=== PATIENT | female | born 1970 | race African-American/Black ===

== ENCOUNTER 2017-02-12 10:21 | Emergency (ER) | payer OTHER ==
[2017-02-12] MEDS ORDERED: Ketorolac Tromethamine 60 MG/2 ML VIAL ONE (12:25)
== END 2017-02-12 12:45 | disposition home or self-care (01) ==
LOC: ERS 10:21
DX: M79.605 Pain in left leg (principal); M06.9 Rheumatoid arthritis, unspecified; J45.909 Unspecified asthma, uncomplicated; I10 Essential (primary) hypertension; Z79.51 Long term (current) use of inhaled steroids; Z79.52 Long term (current) use of systemic steroids
CPT/HCPCS: 96372; J1885

== ENCOUNTER 2017-02-20 08:36 | Emergency (ER) | payer OTHER ==
[2017-02-20] MEDS ORDERED: Dexamethasone 10 MG/ML VIAL ONE (09:05)
== END 2017-02-20 09:26 | disposition home or self-care (01) ==
LOC: ERS 08:36
DX: M54.16 Radiculopathy, lumbar region (principal); M06.9 Rheumatoid arthritis, unspecified; J45.909 Unspecified asthma, uncomplicated; I10 Essential (primary) hypertension; Z79.52 Long term (current) use of systemic steroids; Z79.899 Other long term (current) drug therapy
CPT/HCPCS: 96372; J1100

== ENCOUNTER 2017-04-06 08:09 | Observation (INO) | payer OTHER ==
--- NOTE | 2017-04-06 10:57 | ULT ---
DOPPLER VENOUS ULTRASOUND LEFT LOWER EXTREMITY: INDICATION: Left lower extremity pain. TECHNIQUE: Luu scale, color Doppler, and vascular duplex with spectral analysis was performed of the deep venou s structures of left lower extremity. The common femoral vein, superficial femoral vein, popliteal ve in, posterior tibial vein, proximal greater saphenous, and proximal profunda veins were assessed bila terally. FINDINGS: There is incomplete compression and diminished flow seen within the left popliteal vein suspicious fo r partially occlusive thrombus. No additional deep venous thrombosis is evident. IMPRESSION: Partially occlusive thrombus seen at the level of the popliteal vein. POS: [facility]
[2017-04-06 11:10] LABS: Hematocrit 41.8 % (36.0-47.0); Mean Platelet Volume 7.1 fL (7.4-10.4); Red Blood Cell (RBC) Count 3.96 mill/uL (4.20-5.40); White Blood Cell (WBC) Count 11.9 thou/uL (4.8-10.8)
[2017-04-06] MEDS ORDERED: Enoxaparin Sodium 30 MG/0.3 ML SYRINGE ONE (11:11)
[2017-04-06] MEDS ORDERED: Enoxaparin Sodium 100 MG/ML SYRINGE ONE (11:11)
[2017-04-06 11:31] LABS: ALT (SGPT) 29 U/L (8-55); AST (SGOT) 12 U/L (5-34); Alkaline Phosphatase 80 U/L (40-150); Anion Gap 11 mmol/L (10-20); BUN (Urea Nitrogen) 14 mg/dL (7.0-18.7); Bilirubin, Total 0.2 mg/dL (0.2-1.2); Calc. Creatinine Clearance 0 mL/min (70-130); Carbon Dioxide 23 mmol/L (22-29); Chloride 109 mmol/L (98-107); Estimated GFR-MDRD Greater than 90; Globulin 4.2 g/dL (2.4-3.5); Protein, Total 7.8 g/dL (6.0-8.3)
[2017-04-06] MEDS ORDERED: Morphine 4 MG/ML VIAL ONE (11:39)
[2017-04-06 11:43] LABS: #Basophils 0.1 thou/uL (0.0-0.2); #Lymphocytes 0.7 thou/uL (1.20-3.40); #Monocytes 0.4 thou/uL (0.11-0.59); #Neutrophils 10.7 thou/uL (1.40-6.50); %Basophils 0.6 % (0.0-1.0); %Eosinophils 0.1 % (0.0-10.0); %Lymphocytes 5.7 % (21.0-51.0); %Monocytes 3.6 % (0.0-10.0); Macrocytosis SLIGHT = 6-15 cells (100X) (0-5/hpf)
[2017-04-06] MEDS ORDERED: ISOVUE-370 76%-LOCM 1 ML ONE (13:56)
[2017-04-06 14:08] LABS: Bilirubin Negative (Negative); Blood, Urine Negative (Negative); Glucose, Urine (Dipstick) 100 mg/dL (Negative); Ketone, Urine Negative (Negative); Nitrite Negative (Negative); Protein, Urine (Dipstick) Negative (Neg-Trace); Urobilinogen 0.2 mg/dL (0.2-1.0)
[2017-04-06] MEDS ORDERED: Acetaminophen 325 MG TAB PO PRN (14:28)
--- NOTE | 2017-04-06 14:44 | CT ---
CT PULMONARY ANGIOGRAM WITH IV CONTRAST AND 3D POSTPROCESSING: Date: 04/06/17 HISTORY: 47-year-old female with left leg pain. FINDINGS: There is good contrast opacification of the pulmonary arterial vasculature without filling defects to suggest pulmonary embolism. The thoracic aorta demonstrates no evidence of aneurysm or dissection. N o pleural or pericardial effusions are seen. No pneumothoraces, focal areas of consolidation, or lung masses are identified. No acute osseous abnormalities are noted. IMPRESSION: No CT evidence of pulmonary embolism. POS: [facility]
[2017-04-06 14:49] LABS: Hemoglobin A1c 5.7 % (4.0-6.0)
[2017-04-06 14:56] VITALS: BMI 46.7
[2017-04-06] MEDS: Morphine PF 1 MG/ML SYR IVP PRN ×4 (15:15→23:12)
--- NOTE | 2017-04-06 15:31 | HP-2 ---
CODE STATUS: FULL. PRIMARY CARE PHYSICIAN: Jhon Elizabeth M.D. ATTENDING PHYSICIAN: Huseyin Rizvi M.D. RESIDENT: Stephanie Myers D.O. CHIEF COMPLAINT: Left leg pain. HISTORY OF PRESENT ILLNESS: This is a 47-year-old -[place]e female with past medical history of asthma, rheumatoid arthritis, and GERD that presents with a 3-month history of left lower thigh pain. She has been seen in the hospital and as an outpatient on several occasions and was previously diagnosed with muscle spasms. Nothing has improved the pain. The pain has gotten so bad that the patient is unable to get up or tolerate weightbearing, which is what prompted her to come to ED. The patient has no family or personal history of DVTs or PEs. Her cancer screening is up-to-date; however, she does have a family history of breast cancer on her mother's side. The patient denies any recent surgery or history of trauma to that extremity. The patient denies palpitations, chest pain, or dyspnea. Patient was given therapeutic Lovenox in the ER along with morphine 4 mg. PAST MEDICAL HISTORY: 1. Rheumatoid arthritis. 2. Asthma. 3. Gastroesophageal reflux disease. 4. Morbid obesity. 5. Anxiety. PAST SURGICAL HISTORY: 1. Hysterectomy. 2. Bilateral tubal ligation. ALLERGIES: CODEINE. MEDICATIONS: 1. Albuterol inhaler 2 puffs as needed. 2. Symbicort 160/4.5. 3. Prednisone 20 mg daily. 4. Nexium 40 mg daily. FAMILY HISTORY: The patient's mother had breast cancer. SOCIAL HISTORY: The patient admits to smoking a cigarette occasionally; she estimates once every other week. The patient states that her alcohol use is rare, and she denies any drug use. REVIEW OF SYSTEMS: A 12 point review of systems was performed and all were negative except as listed in the HPI and indicated below. The patient does endorse left anterior thigh pain associated with spasms. She denies any fever or chills or swelling to the left anterior thigh. Patient denies any weakness, numbness, or tingling in the left lower extremity. The patient denies any polydipsia or polyuria. PHYSICAL EXAMINATION: VITAL SIGNS: Blood pressure 143/93, pulse 104, respiratory rate 20, T-max 98.2 , pulse ox 97% on room air, current weight 118 kilograms. GENERAL: The patient is alert and oriented x3, in no acute distress, well- developed, well-nourished, obese, appropriately interactive. HEENT: Pupils equally round and reactive to light and accommodation. Extraocular muscles intact. ENT: Nasal mucosa within normal limits. NECK: Supple. CARDIOVASCULAR: Regular rate and rhythm, no murmurs. RESPIRATORY: Normal respiratory effort, no retractions. LUNGS: Clear to auscultation bilaterally. SKIN: Skin is warm and dry. No cyanosis or lesions. ABDOMEN: Soft, nontender to palpation. Bowel sounds positive in all 4 quadrants. No masses or distention. EXTREMITIES: No clubbing or cyanosis. There is 2+ edema to midcalf in left lower extremity. MUSCULOSKELETAL: Structure within normal limits. NEUROLOGIC: No focal deficits. Sensation within normal limits. Cranial nerves II-XII intact. GCS of 15. PSYCHIATRIC: Appropriate. LABORATORY DATA: 1. CBC reveals a white count of 11.9, hemoglobin 13.7, hematocrit 41.8, and platelets of 241. 2. CMP reveals sodium 139, potassium 3.9, chloride 109, bicarbonate 23, BUN 14 , creatinine 0.80, glucose 193, calcium 9.0, total bilirubin 0.2, total protein 7.0, albumin 3.6, AST 12, ALT 29, and alkaline phosphatase 80. 3. PT 13, INR 1, PTT 28. 4. Left lower extremity Doppler ultrasound shows partially occlusive thrombus in the popliteal vein. ASSESSMENT AND PLAN: This is a 47-year-old -[place]inamese female who presents with a 3-month history of left lower extremity pain. 1. Deep vein thrombosis, which is evident on left lower extremity Doppler ultrasound showing partially occlusive thrombus in popliteal vein. Patient was started on therapeutic Lovenox in the ED. We will transition to oral anticoagulant, Eliquis. We will also check CK to rule out any rhabdomyolysis. Since the patient does have a family history of breast cancer, we will delinquency counselor on potential for BRCA testing as an outpatient. 2. Tachycardia with history of recent deep vein thrombosis. EKG was ordered along with CTA of the chest to rule out pulmonary embolism. The patient did have a Wells score of 4.5. 3. Leukocytosis. This could be a leukemoid reaction versus infectious etiology. Left femur and left knee x-ray were ordered to rule out an infectious cause or osteonecrosis. If x-ray negative, may consider doing an MRI. May also consider CRP and ESR to evaluate for inflammation. 4. Hyperglycemia. Hemoglobin A1c was ordered, pending results. Blood glucose 193 on presentation to ED. 5. Macrocytosis, uncertain etiology. Patient does have rheumatoid arthritis and may be on immunosuppressant drugs. B12 and RBC folate pending. DISPOSITION AND LENGTH OF HOSPITAL STAY: One day. Symptomatic medications will be provided. History and physical exam as well as management discussed with Dr. Arias. MK
--- NOTE | 2017-04-06 15:41 | HP ---
DATE OF ADMISSION: 04/06/2017 CHIEF COMPLAINT: Leg pain. HISTORY OF PRESENT ILLNESS: This is a 47-year-old female with past history of rheumatoid arthritis, diabetes, asthma, who presents with a 3-month history of worsening severe left leg pain. It is aching, worse with movement, better with rest and has been worsening over the last 3 months, nothing particular happened last night or today to make her come. She was just tired of being in pain. Denies any numbness or tingling, any fevers, night sweats, any chest pain, shortness of breath, any weakness or abdominal pain. No recent weight loss and all other systems were reviewed and are negative. PAST MEDICAL HISTORY: Positive for rheumatoid arthritis, asthma, diabetes. PAST SURGICAL HISTORY: Positive for history of tubal ligation, hysterectomy. SOCIAL HISTORY: Drinks socially. No drug use, nonsmoker. ALLERGIES: CODEINE. MEDICATIONS: Include prednisone 20 mg daily, Symbicort, albuterol, naproxen, Robaxin, and a Medrol Dosepak on file, unsure if she is taking. She also says she is taking an unknown other antirheumatic agent prescribed for in [place]. PHYSICAL EXAMINATION: VITAL SIGNS: Include temperature of 98.2, pulse 115, BP 135/86, respirations 20 , O2 sat 96% on room air. GENERAL: Well-appearing, no distress. Alert and oriented x3. HEENT: Pupils equal, round, and reactive to light. No icterus or injection. Nares patent. Pinna normal. Moist mucous membranes. No obvious thyromegaly. CARDIOVASCULAR: Regular rhythm without murmurs, gallops or rubs. She has trace pitting edema to bilateral lower extremities, perhaps slightly worse on the left. She was tachycardic on heart exam. LUNGS: Clear to auscultation bilaterally with increased work of breathing, wheezes, rales or rhonchi. ABDOMEN: Bowel sounds positive. Nontender to palpation. GENITOURINARY: Deferred. MUSCULOSKELETAL: She has quite a bit of tenderness to palpation over the anterior medial thigh. She actually refused to let me complete the portion of the exam, although she had no overlying erythema, palpable fluctuance or other skin changes. Distal pulses on both extremities are 1+ on the DP and PT. NEUROLOGIC: Cranial nerves II-XII intact and symmetric. Motor is 5/5 in upper extremities. She is 5/5 in the right lower extremity and slightly diminished in the left simply because she refuses to move the leg because of the pain. PSYCHIATRIC: Alert and oriented x3. PSYCHIATRIC: Mood and affect appropriate for current medical condition. LABORATORY DATA: Include white count 11.9 with 90% neutrophils. Hemoglobin 13.7, MCV 106, platelets 241. Coag: INR 1, PTT 28. Chemistry: Sodium 139, potassium 3.9, chloride 109, bicarb 23, gap of 11, BUN 14, creatinine 0.8, glucose 193. Normal LFTs. UA with only 100 glucose in her urine. Her reports included vascular ultrasound positive for a partially occlusive thrombus at the left popliteal vein. ASSESSMENT AND PLAN: This is a 47-year-old female with: 1. Left lower extremity deep venous thrombosis. We will go ahead and prescribe therapeutic Lovenox and plan transitioning her to oral anticoagulant. CTA as she is tachycardic to r/o PE. 2. Uncontrolled leg pain that has failed outpatient therapy. The differential is wide and deep vein thrombosis could be contributing. She could also have diabetic myonecrosis, neuropathy or vasculitis in light of her rheumatic disease and inguinal hernia or femoral hernia, though that is not evident on exam which was limited by her refusal for a thorough exam. Necrotizing fasciitis, pyomyositis although evidence for acute infection I feel is relatively lacking as she has mild white count and is afebrile, but we will closely monitor her exam. 3. Rheumatoid arthritis. She is currently on prednisone. I suspect methotrexate as well, evidenced by her macrocytosis. We will request records from [place] as well as continue her prednisone while she is in-house and a folate and B12 for her macrocytosis. 4. Diabetes. Sliding scale initially while she is in-house. We will go ahead and send A1c. Deep venous thrombosis prophylaxis. She is on therapeutic Lovenox. Gastrointestinal prophylaxis, on diet. Pain control with IV opiates. MTDD
--- NOTE | 2017-04-06 17:19 | RAD ---
LEFT FEMUR 2 VIEWS: Date: 04/06/17 HISTORY: Left lower extremity pain. FINDINGS/IMPRESSION: The left femur is intact. There are degenerative changes in the left knee. Contrast is present in a d istended urinary bladder. POS: [facility]
--- NOTE | 2017-04-06 18:33 | RAD ---
FOUR VIEWS OF LEFT KNEE: Date: 04-06-17 Comparison: None. History: Left lower extremity pain/knee pain. FINDINGS: There is severe medial compartment degenerative change with joint space narrowing, subchondral sclero sis and medial osteophyte formation. There is moderate lateral compartment narrowing, subchondral scl erosis and osteophyte formation. There is a nonspecific small knee joint effusion. There is moderate patellofemoral joint space narrowing with associated osteophyte formation. No acute fracture or dislo cation. IMPRESSION: Prominent multi compartment degenerative change. Small knee joint effusion with no displaced fracture or dislocation noted. POS: [facility]
[2017-04-06] MEDS ORDERED: Zolpidem Tartrate 5 MG TAB PO PRN (21:11)
[2017-04-06] MEDS ORDERED: Apixaban 5 MG TAB PO SCH (23:00)
[2017-04-07] MEDS: Morphine PF 1 MG/ML SYR IVP PRN ×5 (04:17→14:04)
[2017-04-07] MEDS ORDERED: Dextrose 5% in Water 1,000 ML IV PRN (05:58)
[2017-04-07] MEDS ORDERED: HumaLOG 300 UNITS/3 ML VIAL SC PRN (05:58)
[2017-04-07] MEDS ORDERED: Dextrose 50% Abboject 50 ML SYRINGE SLOW IVP PRN (05:58)
[2017-04-07] MEDS ORDERED: ALBUTEROL SULFATE NEB PRN (06:00)
--- NOTE | 2017-04-07 06:03 | PDOC.FM ---
Addendum entered and electronically signed by Jignesh Houston DO 04/07/17 10: 54: Upper Level Note: Patient doing well overall. Still having some leg pain. Denies chest pain and dyspnea Vitals: HR 103 Temp 98.4 BP 121/75 O2 97% on RA RR 16 Exam: Obese, alert, oriented x3. NAD. Lungs CTAB. Heart RRR. No m/r/g auscultated. Abdomen soft, nontender. Anterior left thigh tender to palpation. Some pain with flexion of hip. Pulses full and equal in all 4 extremities. No focal neurologic deficits A/P: 1) DVT of left popliteal vein - Continue anticoagulation. No evidence of PE 2) Left thigh pain - Likely related to #1 but other etiologies being considered including osteonecrosis of hip. ESR elevated but patient known to have RA. CRP was normal. MRI of left leg and hip pending I personally examined the patient and agree with Dr. Myers's examination, assessment, and plan as listed below. Please refer to her note for full details and plan. Jignesh Houston DO PGY-3 Original Note: - Subjective Subjective: Patient doing well this AM. She does endorse pain in her legs bilaterally, with more intensity in right anterior thigh. She denies any chest pain or shortness of breath. She is having difficulty ambulating secondary to pain. Patient does complain of dysuria and suprapubic pain. - Objective MAR Reviewed: Yes Vital Signs & Weight: Vital Signs (12 hours) Temp Pulse Resp BP Pulse Ox 04/06/17 23:12 98.4 F 103 H 16 121/75 97 04/06/17 21:10 98.3 F 97 16 135/63 97 04/06/17 19:40 98.3 F 97 16 133/82 96 Weight Weight 131.287 kg I&O: 04/05/17 04/06/17 04/07/17 06:59 06:59 06:59 Intake Total 308 Output Total 0 Balance 308 Result Diagrams: 04/07/17 06:42 04/06/17 10:54 EKG Reviewed by me: Yes Radiology Reviewed by me: Yes <Stephanie Myers - Last Filed: 04/07/17 08:16> - Objective Vital Signs & Weight: Vital Signs (12 hours) Temp Pulse Resp BP Pulse Ox 04/07/17 07:58 97.7 F 99 20 141/85 H 93 L 04/07/17 06:58 105 H 20 04/07/17 06:55 105 H 20 04/07/17 04:17 90 18 139/76 98 04/06/17 23:12 98.4 F 103 H 16 121/75 97 Weight Weight 289 lb 7 oz I&O: 04/06/17 04/07/17 04/08/17 06:59 06:59 06:59 Intake Total 1272 Output Total 600 Balance 672 Result Diagrams: 04/07/17 06:42 04/06/17 10:54 <Huseyin Rizvi - Last Filed: 04/07/17 11:00> Phys Exam - Physical Examination Constitutional: NAD HEENT: moist MMs, sclera anicteric Neck: supple Respiratory: no wheezing, no rales, no rhonchi, clear to auscultation bilateral Cardiovascular: RRR, no significant murmur Gastrointestinal: soft, non-tender, no distention, positive bowel sounds Obese Musculoskeletal: pulses present 2+ edema of LLE, Tender to palpation of left anterior thigh Jumps with touch to lower extremities bilaterally. Neurological: non-focal, moves all 4 limbs Psychiatric: A&O x 3 Skin: cap refill <2 seconds <Stephanie Myers - Last Filed: 04/07/17 08:16> Dx/Plan (1) DVT (deep venous thrombosis) Code(s): I82.409 - ACUTE EMBOLISM AND THOMBOS UNSP DEEP VN UNSP LOWER EXTREMITY Status: Acute QualifierTitle: DVT location: lower extremity Affected thrombotic vein of extremity: popliteal Chronicity: unspecified Laterality: left Qualified Code(s): I82.432 - Acute embolism and thrombosis of left popliteal vein (2) Hyperglycemia Code(s): R73.9 - HYPERGLYCEMIA, UNSPECIFIED Status: Acute (3) Leukocytosis Code(s): D72.829 - ELEVATED WHITE BLOOD CELL COUNT, UNSPECIFIED Status: Acute (4) Rheumatoid arthritis Code(s): M06.9 - RHEUMATOID ARTHRITIS, UNSPECIFIED Status: Chronic QualifierTitle: Rheumatoid arthritis location: multiple sites Rheumatoid factor presence: unspecified presence Qualified Code(s): M06.9 - Rheumatoid arthritis, unspecified (5) GERD (gastroesophageal reflux disease) Code(s): K21.9 - GASTRO-ESOPHAGEAL REFLUX DISEASE WITHOUT ESOPHAGITIS Status: Acute QualifierTitle: Esophagitis presence: esophagitis presence not specified Qualified Code(s): K21.9 - Gastro-esophageal reflux disease without esophagitis (6) Asthma Code(s): J45.909 - UNSPECIFIED ASTHMA, UNCOMPLICATED Status: Acute QualifierTitle: Asthma severity: mild Asthma persistence: intermittent Asthma complication type: uncomplicated Qualified Code(s): J45.20 - Mild intermittent asthma, uncomplicated (7) UTI (urinary tract infection) Status: Acute QualifierTitle: Urinary tract infection type: site unspecified Hematuria presence: without hematuria Qualified Code(s): N39.0 - Urinary tract infection , site not specified - Plan Plan: Plan: DVT of left popliteal vein: - Evident on doppler U/S of LLE - Initially treated with therapeutic lovenox and transitioned to oral anticoagulant, eliquis - PE ruled out via CTA - EKG unremarkable - Patient still in pain despite morphine, consider adding gabapentin to medication regimen Tachycardia, intermittent: - Ruled out PE via CTA - EKG unremarkable UTI, uncomplicated - E. coli positive on culture - Treat withkeflex Leukocytosis with 90% neutrophils: - Concern for infection or other etiology for leg pain - Xray of femur and knee unremarkable. Xray of knee showed only some osteoarthritic changes to include joint space narrowing. - MRI of LLE pending - May be leukomoid reaction, although this is less likely with neutrophilia of 90% - CK nml - ESR and CRP pending Hyperglycemia: - Mild SSI while in hospital - HgA1c 5.7 - Patient needs further management as outpatient Rheumatoid arthritis: - Continue prednisone - Try to obtain records to verify other medications patient should be taking Asthma: -Continue home medications <Stephanie Myers - Last Filed: 04/07/17 08:16> Attending Addendum - Attending Addendum I personally evaluated the patient and discussed the management with Dr. Myers and Celso I agree with the History, Examination, Assessment and Plan documented above. <Huseyin Rizvi - Last Filed: 04/07/17 11:00>
[2017-04-07] MEDS ORDERED: Mometasone/Formoterol 120 PUFF INHALER INH SCH (06:30)
[2017-04-07 06:51] LABS: #Basophils 0.1 thou/uL (0.0-0.2); #Lymphocytes 3.1 thou/uL (1.20-3.40); #Monocytes 0.6 thou/uL (0.11-0.59); #Neutrophils 5.4 thou/uL (1.40-6.50); %Basophils 0.7 % (0.0-1.0); %Eosinophils 0.3 % (0.0-10.0); %Lymphocytes 33.4 % (21.0-51.0); Hematocrit 38.8 % (36.0-47.0); Mean Platelet Volume 7.1 fL (7.4-10.4); Red Blood Cell (RBC) Count 3.66 mill/uL (4.20-5.40); White Blood Cell (WBC) Count 9.2 thou/uL (4.8-10.8)
[2017-04-07] MEDS ORDERED: predniSONE 20 MG TAB PO SCH (08:00)
[2017-04-07] MEDS ORDERED: Simethicone Chewable 80 MG TAB PO PRN (08:18)
[2017-04-07] MEDS ORDERED: cefTRIAXone\\ROCEPHIN 2 GM in Sodium Chloride 0.9% 100 ML IVPB SCH (08:30)
[2017-04-07] MEDS ORDERED: Apixaban 5 MG TAB PO SCH (09:00)
[2017-04-07] MEDS ORDERED: Gabapentin 100 MG CAP PO SCH (09:00)
[2017-04-07] MEDS ORDERED: Cephalexin 250 MG CAP PO SCH (09:00)
[2017-04-07] MEDS ORDERED: Non-Formulary Item 1 EACH (Budesonide-Formoterol [Symbicort 160-4.5] 1 PUFF) INH SCH (09:00)
[2017-04-07] MEDS ORDERED: Cephalexin 125 MG/5 ML Oral Suspension PO SCH (09:00)
--- NOTE | 2017-04-07 13:17 | EKG ---
Test Reason : ROUTINE Blood Pressure : / mmHG Vent. Rate : 096 BPM Atrial Rate : 096 BPM P-R Int : 120 ms QRS Dur : 070 ms QT Int : 352 ms P-R-T Axes : 044 014 013 degrees QTc Int : 444 ms Poor data quality, interpretation may be adversely affected lead V3 Normal sinus rhythm Normal ECG When compared with ECG of 07-JUL-2016 04:25, T wave amplitude has decreased in Lateral leads Confirmed by MARTHA GUIDO ([id number]) on 04/07/2017 1:17:02 PM Referred By: DOROTHY Confirmed By:MARTHA GUIDO
[2017-04-07 15:20] VITALS: BP 138/90; TEMP 98.2
[2017-04-07] MEDS ORDERED: traMADol HCl 50 MG TAB PO PRN (16:08)
--- NOTE | 2017-04-08 14:39 | DIS-2 ---
DATE OF ADMISSION: 04/06/2017 DATE OF DISCHARGE: 04/07/2017 RESIDENT: Stephanie Myers DO ADMITTING PHYSICIAN: Lico Arias MD DISCHARGE ATTENDING: Huseyin Rizvi M.D. CONSULTATIONS: None. PROCEDURES: 1. Vascular ultrasound showed partially occlusive thrombus at the level of the popliteal vein. 2. CTA of chest/thorax, no evidence of pulmonary embolism. 3. EKG: Normal sinus rhythm. 4. Left femur x-ray shows left femur intact. There are degenerative changes in the left knee. 5. Left knee x-ray; prominent multi-compartment degenerative changes, small knee effusion with no displaced fracture or dislocation noted. PRIMARY DIAGNOSES: 1. Deep vein thrombosis of left popliteal vein. 2. Urinary tract infection, uncomplicated. SECONDARY DIAGNOSES: 1. Tachycardia, intermittent. 2. Leukocytosis with 90% neutrophils. 3. Hyperglycemia. 4. Rheumatoid arthritis. 5. Asthma. DISCHARGE MEDICATIONS: 1. Eliquis 5 mg oral twice daily for 6 days and then take one tablet twice a day remaining days. 2. Keflex 500 mg oral every 12 hours. 3. Gabapentin 300 mg oral daily. 4. Albuterol sulfate 2 puffs nebulizer every 4 hours as needed. 5. Symbicort 160/4.5 one puff inhalation twice daily. 6. Prednisone 20 mg oral every morning with breakfast. DISCONTINUED MEDICATIONS: Naproxen 500 mg oral twice daily. HISTORY OF PRESENT ILLNESS AND HOSPITAL COURSE: This is a 47-year-old female with past medical history of rheumatoid arthritis, diabetes, asthma, who presented with 3-month history of worsening severe left leg pain and aching worse with movement, better with rest, and has been worsening over the last 3 months. Nothing particular happened prior to admission or during the admission which prompted her to come to ED. She was just tired of being in pain. The patient denies any numbness or tingling, fevers, night sweats, chest pain, shortness of breath, weakness, or abdominal pain. No recent weight loss. All other systems reviewed and were negative. Of note, the patient's cancer screening is up-to-date. She does have a family history of breast cancer on her mother's side. The patient denies any family or personal history of DVTs or PE. Risk factors for DVT and PE include poor mobilization. The patient remained stable throughout the course of the hospital stay. She was given therapeutic Lovenox in the Emergency Department and then transitioned to Eliquis for the treatment of her DVT. She was instructed to take Eliquis 5 mg b.i.d. for 6 days and then instructed to transition to 10 mg b.i.d. for approximately 6 months. Due to the nature of the patient's pain being out of proportion to the physical exam findings, x-rays were performed to rule out other causes of pain. Aside from arthritic changes, there were no other abnormalities noted on x-ray. An MRI was ordered; however, patient refused MRI. CK was normal, which ruled out rhabdomyolysis as a cause of her pain. The patient continued to be treated for her DVT. She was instructed to follow very closely with her primary care physician to ensure that treatment is effective. Only a month supply of Eliquis was provided to the patient. She will need to follow up with her primary care physician to continue having this prescribed. Of note, the patient's laboratory findings were all within normal limits. She was tachycardic on admission, thus a CTA of the chest was performed to rule out pulmonary embolism. There was no evidence of pulmonary embolism on CTA of the chest. The patient also denied shortness of breath. DISPOSITION: Stable. DISCHARGE INSTRUCTIONS: 1. Location: Home. 2. Activity: As tolerated. 3. Diet: Consistent carbohydrates. 4. Followup: The patient was instructed to follow up in 7 [facility] at [facility] for further management of her DVT. The necessity for close followup was discussed in detail. The patient was in understanding of this plan and was agreeable. MK
[2017-04-08 16:15] LABS: Folate,Hemolysate 312.7 ng/mL (Not Estab.); RBC Folate Test Component 869 ng/mL (>498)
== END 2017-04-07 18:27 | disposition home or self-care (01) ==
LOC: ERS 08:09 → INTOOBSV 10:57 → ERHOLD 10:57 → 2SW 14:36
PROVIDERS: ADMIT Internal Medicine; ATTEND Internal Medicine
DX: I82.432 Acute embolism and thrombosis of left popliteal vein (principal); N39.0 Urinary tract infection, site not specified; R00.0 Tachycardia, unspecified; D72.829 Elevated white blood cell count, unspecified; E11.65 Type 2 diabetes mellitus with hyperglycemia; M06.9 Rheumatoid arthritis, unspecified; J45.909 Unspecified asthma, uncomplicated; K21.9 Gastro-esophageal reflux disease without esophagitis; E66.01 Morbid (severe) obesity due to excess calories; F41.9 Anxiety disorder, unspecified; Z68.42 Body mass index [BMI] 45.0-49.9, adult; Z79.2 Long term (current) use of antibiotics; Z79.01 Long term (current) use of anticoagulants; Z79.52 Long term (current) use of systemic steroids; Z79.899 Other long term (current) drug therapy; Z88.5 Allergy status to narcotic agent; Z98.51 Tubal ligation status; Z90.710 Acquired absence of both cervix and uterus
CPT/HCPCS: 36415; 71275; 80053; 81003; 82550; 82607; 82747; 83036; 85025; 85610; 85652; 85730; 86140; 87077; 87086; 87186; 93005; 93010; 94640; 94664; 96361; 96372; 96374; 96376; A4216; G0378; J1650; J2270; J2274; J7506; J7620

== ENCOUNTER 2017-04-17 09:38 | Emergency (ER) | payer OTHER ==
[2017-04-17 10:56] LABS: #Lymphocytes 0.9 thou/uL (1.20-3.40); #Monocytes 0.2 thou/uL (0.11-0.59); #Neutrophils 8.2 thou/uL (1.40-6.50); %Basophils 0.2 % (0.0-1.0); %Eosinophils 0.3 % (0.0-10.0); %Lymphocytes 9.1 % (21.0-51.0); %Monocytes 2.3 % (0.0-10.0); Hematocrit 45.2 % (36.0-47.0); Mean Platelet Volume 7.1 fL (7.4-10.4); Red Blood Cell (RBC) Count 4.26 mill/uL (4.20-5.40); White Blood Cell (WBC) Count 9.3 thou/uL (4.8-10.8)
[2017-04-17 11:07] LABS: PTT 32.5 SEC (22.9-36.1); Prothrombin Time 13.4 SEC (12.0-14.7)
[2017-04-17 11:12] LABS: ALT (SGPT) 30 U/L (8-55); AST (SGOT) 19 U/L (5-34); Alkaline Phosphatase 88 U/L (40-150); Anion Gap 12 mmol/L (10-20); BUN (Urea Nitrogen) 14 mg/dL (7.0-18.7); Bilirubin, Total 0.3 mg/dL (0.2-1.2); Calc. Creatinine Clearance 0 mL/min (70-130); Calcium 9.6 mg/dL (7.8-10.44); Carbon Dioxide 27 mmol/L (22-29); Chloride 103 mmol/L (98-107); Estimated GFR-MDRD Greater than 90; Globulin 4.5 g/dL (2.4-3.5); Protein, Total 8.4 g/dL (6.0-8.3)
[2017-04-17] MEDS ORDERED: Ketorolac Tromethamine 30 MG/ML VIAL ONE (11:13)
--- NOTE | 2017-04-17 11:31 | ULT ---
DOPPLER VENOUS ULTRASOUND LEFT LOWER EXTREMITY: Date: 04/17/17 INDICATION: History of left leg pain with recent diagnosis of deep venous thrombosis. COMPARISON: Prior exam dated 04/06/17. TECHNIQUE: Luu scale, color Doppler, and vascular duplex with spectral analysis was performed of the deep venou s structures of the left lower extremity. The common femoral vein, superficial femoral vein, proximal greater saphenous vein, proximal greater profunda vein, popliteal, and posterior tibial veins were a ssessed. FINDINGS: The previously seen partially occlusive thrombus within the left popliteal vein is no longer identifi ed. There is normal compression, flow, and augmentation seen within the deep venous structures of the left lower extremity. IMPRESSION: 1. The previously seen left popliteal vein partially occlusive thrombus is no longer identified. 2. There is no evidence of residual deep venous thrombosis within the left lower extremity. POS: [facility]
== END 2017-04-17 12:27 | disposition home or self-care (01) ==
LOC: ERS 09:38
DX: M79.605 Pain in left leg (principal); M06.9 Rheumatoid arthritis, unspecified; J45.909 Unspecified asthma, uncomplicated; F41.9 Anxiety disorder, unspecified; Z79.52 Long term (current) use of systemic steroids; Z79.899 Other long term (current) drug therapy
CPT/HCPCS: 80053; 85025; 85610; 85730; 96374; J1885

== ENCOUNTER 2017-04-20 05:53 | Observation (INO) | payer OTHER ==
[2017-04-20] MEDS ORDERED: Bisacodyl 10 MG SUPP PR PRN (08:29)
[2017-04-20] MEDS ORDERED: HYDROcodone/Acetaminophen 10/325 mg Tablet PO PRN (08:29)
[2017-04-20] MEDS ORDERED: HYDROcodone/Acetaminophen 5/325 mg Tablet PO PRN (08:29)
[2017-04-20] MEDS ORDERED: Ondansetron HCl/PF 4 MG/2 ML Vial IVP PRN (08:29)
[2017-04-20] MEDS ORDERED: Bisacodyl 5 MG TAB PO PRN (08:29)
[2017-04-20] MEDS ORDERED: Ondansetron ODT 4 MG TAB PO PRN (08:29)
[2017-04-20] MEDS ORDERED: ALBUTEROL SULFATE NEB PRN (08:38)
[2017-04-20] MEDS ORDERED: Ibuprofen 800 MG TAB PO SCH (08:45)
[2017-04-20] MEDS ORDERED: Gabapentin 100 MG CAP PO SCH (09:00)
[2017-04-20] MEDS ORDERED: Apixaban 5 MG TAB PO SCH (09:00)
[2017-04-20] MEDS ORDERED: Non-Formulary Item 1 EACH (Budesonide-Formoterol [Symbicort 160-4.5] 1 PUFF) INH SCH (09:00)
[2017-04-20] MEDS ORDERED: PROVENTIL INHALER 6.7 G (200 INHALATIONS) INH PRN (09:32)
[2017-04-20] MEDS ORDERED: Ketorolac Tromethamine 30 MG/ML VIAL IVP SCH (09:45)
[2017-04-20 10:09] LABS: #Basophils 0.1 thou/uL (0.0-0.2); #Lymphocytes 1.9 thou/uL (1.20-3.40); #Monocytes 0.5 thou/uL (0.11-0.59); #Neutrophils 4.2 thou/uL (1.40-6.50); %Basophils 1.3 % (0.0-1.0); %Eosinophils 0.4 % (0.0-10.0); %Lymphocytes 28.2 % (21.0-51.0); Hematocrit 44.4 % (36.0-47.0); Mean Platelet Volume 6.9 fL (7.4-10.4); Red Blood Cell (RBC) Count 4.19 mill/uL (4.20-5.40); White Blood Cell (WBC) Count 6.7 thou/uL (4.8-10.8)
[2017-04-20 10:24] LABS: Bilirubin Negative (Negative); Blood, Urine Negative (Negative); Glucose, Urine (Dipstick) Negative (Negative); Ketone, Urine Negative (Negative); Nitrite Positive (Negative); Protein, Urine (Dipstick) Negative (Neg-Trace); Urobilinogen 0.2 mg/dL (0.2-1.0)
[2017-04-20 10:26] LABS: Bacteria/HPF 4+ HPF (None Seen); Hyaline Casts/LPF 0-3 HYALINE CAST LPF (0-3 Hyaline); Squamous Epithelial 0-3 HPF (0-3)
[2017-04-20 10:33] LABS: ALT (SGPT) 27 U/L (8-55); AST (SGOT) 19 U/L (5-34); Alkaline Phosphatase 77 U/L (40-150); Anion Gap 12 mmol/L (10-20); BUN (Urea Nitrogen) 12 mg/dL (7.0-18.7); Bilirubin, Total 0.3 mg/dL (0.2-1.2); Calc. Creatinine Clearance 0 mL/min (70-130); Calcium 9.8 mg/dL (7.8-10.44); Carbon Dioxide 28 mmol/L (22-29); Chloride 104 mmol/L (98-107); Estimated GFR-MDRD Greater than 90; Globulin 4.4 g/dL (2.4-3.5); Protein, Total 8.1 g/dL (6.0-8.3)
[2017-04-20] MEDS ORDERED: Morphine 2 mg/2ml in 0.9% NaCl PF SYRINGE ONE (10:39)
[2017-04-20 10:50] LABS: RBC/HPF 0-3 HPF (0-3)
--- NOTE | 2017-04-20 12:30 | PDOC.EVN ---
Attending Addendum - Attending Addendum I personally evaluated the patient and discussed the management with Dr. Solis. I agree with the History, Examination, Assessment and Plan documented above with any addition or exceptions noted below. Patient with recent history of DVT in her lower extremity here today for complaints of pain in her leg and R sided back that she reports has been ongoing and progressive over the last 4 months. She reports she is unable to get out of the bed due to pain, to the point of soiling herself. She is poor historian and cannot qualify the pain, though she reports it is constant. She is tearful on exam. She is very resistant to physical exam and tries to remove my hand during my exam. She is neurologically intact as she has normal sensation in her lower extremities bilaterally, and can move her toes normally. Pulses intact. No evidence of skin abnormality to explain her pain. She apparently had repeat US a few days ago which showed resolution of DVT. Will perform some imaging studies to ascertain the cause of her pain, including repeat U/S to make sure there is no recurrent clot. As she is neurologically intact, it is unlikely she has spinal disease as the cause of her pain, but if nothing else is positive, she may need lumbar MRI. Will maximize pain regimen, avoiding narcotics, and reassess. Labs overtly normal. She does have some degree of UTI and we will send urine culture.
--- NOTE | 2017-04-20 12:56 | HP-2 ---
CODE STATUS: FULL. PRIMARY CARE PHYSICIAN: [facility]. ATTENDING: Anjel Freeman MD RESIDENT: Fernando Solis, PGY-1. CHIEF COMPLAINT: Intractable pain, for which she could not move. HISTORY OF PRESENT ILLNESS: This is a 47-year-old female who came to the ER by kierra siddiqui because she could not get out of bed due to pain in her left thigh and back area. She said brandi n is worse with movement, but also rates it at a 10/10 when she just lying in bed, rates it as kind o f just a sharp pain, reports having numbness and tingling. Says the pain is worse in her thigh and h ip area, but also radiates to her back. Says that she could not even get up to go to the bathroom, s o ended up soiling herself. Says she is able to control her bladder, control stools, just could not get up to move. She recently was discharged just a few weeks ago with a recently diagnosed DVT and s ent home with Eliquis. Since then, she has followed up with her PCP and started having pain. There she was sent to our pain clinic at [facility] where she was supposed to get a pain shot, but could not do that. She was not able to keep still. At that time, they sent her to the ER on the where s he got ultrasound Doppler, which showed resolution of the DVT. The DVT was in the popliteal vein are a. She has continued taking Eliquis. She is on Pequea, gabapentin, cyclobenzaprine, and naproxen and has not had much pain relief with that as well. During the exam, the patient was very worked up, margoth moore, seemed to be very worked up, it is hard to get a full history from her and get accurate testing . She was able to move her leg, but had very severe pain on palpation. Denied any fevers, chills. Denied any recent trauma. Denied any dysuria or pain with urination. Denied any other symptoms othe r than the numbness and tingling. PAST MEDICAL HISTORY: DVT in the popliteal vein, morbid obesity, osteoarthritis, rheumatoid arthriti s, and asthma. PAST SURGICAL HISTORY: Include hysterectomy and bilateral tubal ligation. ALLERGIES: CODEINE. MEDICATIONS: Symbicort, Proventil HFA, prednisone 20 mg 1 time daily, cyclobenzaprine 10 mg q.8 h. p .r.n., naproxen ER 500 mg daily, Benadryl 25 mg 2 times daily p.r.n., gabapentin 100 mg 1 time daily, Pequea 5/325 p.r.n. FAMILY HISTORY: Mother had breast cancer. SOCIAL HISTORY: She smokes occasional like once every other week. Alcohol use is rare. Drugs denie s. REVIEW OF SYSTEMS: Mainly positive for musculoskeletal pain, tenderness, arthritis, arthralgias, bartolome ro weakness, numbness and tingling. PHYSICAL EXAMINATION: VITAL SIGNS: Blood pressure is 156/101, pulse is 100, respirations 18, temperature is 98.8, pulse ox is 99% on room air. Current weight is 108.86 kilograms. GENERAL: She is alert and oriented x3, well developed, well nourished, obese. She is very histrioni c, very worked up, crying, seems very distraught. HEENT: PERRLA, EOMI. Conjunctivae within normal limit. NECK: Supple, no lymphadenopathy, no thyromegaly or bruits. CARDIOVASCULAR: Regular rate and rhythm. No murmurs, no gallops. Radial pulses and pedal pulse pal pated bilaterally. RESPIRATORY: Normal breathing effort, no retractions. Lungs clear to auscultation bilaterally. SKIN: Warm and dry. No cyanosis or lesions. There is some bruising on her left anterior calf. ABDOMEN: Soft, nontender to palpation. Bowel sounds in all 4 quadrants. No mass or distention. EXTREMITIES: She has no edema, no pitting. MUSCULOSKELETAL: Structures within normal limit. Tone is within normal limits. She has decreased r maria d of motion due to pain. NEUROLOGIC: Sensation seemed to be intact when talking with her, but not able to get full exam, and she was not fully cooperative. She was able to move all extremities bilaterally. Did not seem to palmer ve any focal neuro deficit. PSYCHIATRIC: She seems very worked up, very anxious, very histrionic. LABORATORY DATA: White blood cell count 6.7, hemoglobin 14.5, hematocrit 44.4, platelet count 228, M CV is 106. Sodium is 140, potassium is 4.0, chloride 104, carbon dioxide 28, BUN is 12, creatinine i s 0.77, glucose is 87, calcium 9.8, total protein is 8.1, albumin is 3.7, total bilirubin 0.3, AST 14 , ALT 27, alkaline phosphatase 77. ESR is 34. Her UA is leukocyte esterase moderate, nitrite positi ve, white blood cells 50 to too numerous to count, bacteria 4+. No imaging has been done at this jennifer e. ASSESSMENT AND PLAN: Intractable pain over the left thigh and hip and lower back with a recent histo ry of deep vein thrombosis. She did have an ultrasound on 04/17/2017, which showed resolution of the deep vein thrombosis in the popliteal area. We will get a re-ultrasound of her legs bilaterally as maybe has a new deep vein thrombosis, but she is currently on Eliquis. We will continue Eliquis. Sarahy bunn is on a lot of pain medicines at home, so we will do scheduled Tylenol and ibuprofen, give her a 1 time dose of Toradol. We will give her Pequea 5 for moderate pain p.r.n. and give Pequea, TENS for sev ere pain. We will also get a hip x-ray, get a lumbar x-ray. She did at her last hospital visit have recent knee and thigh x-rays, which were negative. Gabapentin was kind of low for that dose. We wi ll maybe increase the gabapentin at this time. We will consult PT and OT to see if they can help. Tam bunn will get case management consulted as she is not able to take care of herself at home due to moveme nt, may need placement in a correction rehab or detention unit. Due to her kind of personali ty, she maybe had some underlying depression or anxiety with some maybe fibromyalgia. We will start her on amitriptyline to see if this helps with pain as well. 2. Recent history of deep vein thrombosis of the popliteal vein. We will continue her Eliquis. We will repeat the ultrasound bilaterally. 3. Osteoarthritis. We will adjust home pain regimen as talked about above. 4. She has a history of rheumatoid arthritis. She is on steroids daily. I do not see a mention of methotrexate, may look into why she is not on methotrexate, may help with pain as well. We will also increase to add more steroid burst give her 100 mg of methylprednisolone. Hope to see that helps he r hip pain. 5. She has elevated blood pressures. We will continue to monitor. Does not have any blood pressure medications at home, could be due to pain, so we will continue to try and get her pain under control and continue to monitor. 6. Definitely has positive urinary tract infection. Did not report being symptomatic, but she has l eukocyte esterase positive, nitrite positive, white blood cells 50, too numerous to count, bacteria 4 +, more likely started on Bactrim. She does have a history of high risk sexual behavior. Recent vag inal discharge in her chart, so may need to adjust her antibiotic. 7. Deep vein thrombosis prophylaxis. She is on Eliquis for the deep vein thrombosis currently and g astroesophageal reflux disease prophylaxis. We will kind of monitor.
[2017-04-20] MEDS ORDERED: Ketorolac Tromethamine 30 MG/ML VIAL ONE (13:29)
[2017-04-20] MEDS ORDERED: Amitriptyline HCl 25 MG TAB PO SCH ×2 (14:38→15:00)
[2017-04-20 14:42] VITALS: BMI 45.2
[2017-04-20] MEDS ORDERED: predniSONE 20 MG TAB PO SCH (15:00)
[2017-04-20 15:24] LABS: Anion Gap 12 mmol/L (10-20); BUN (Urea Nitrogen) 11 mg/dL (7.0-18.7); Calc. Creatinine Clearance 185 mL/min (70-130); Calcium 9.7 mg/dL (7.8-10.44); Carbon Dioxide 29 mmol/L (22-29); Chloride 103 mmol/L (98-107); Estimated GFR-MDRD Greater than 90
[2017-04-20] MEDS: Apixaban 5 MG TAB PO SCH ×2 (17:13→21:41)
[2017-04-20] MEDS: Ibuprofen 800 MG TAB PO SCH ×2 (17:27→21:43)
[2017-04-20] MEDS: Gabapentin 300 MG CAP PO SCH (17:27)
[2017-04-20] MEDS: Acetaminophen 325 MG TAB PO SCH ×2 (17:28→19:26)
--- NOTE | 2017-04-20 18:53 | ULT ---
BILATERAL LOWER EXTREMITY VENOUS DOPPLER ULTRASOUND: Date: 04-20-17 History: Pain, swelling, assess for DVT. Technique: Multiplanar grayscale sonographic imaging of the venous structures of bilateral lower extr emities obtained with color flow and spectral analysis. FINDINGS: Bilateral common femoral veins, greater saphenous veins, profunda femoral veins, femoral veins, popli teal veins, and posterior tibial veins are patent. There is normal blood flow, augmentation, and comp ression within the deep venous system bilaterally. No evidence for DVT on either side. IMPRESSION: No evidence for deep venous thrombosis of either lower extremity. POS: [facility]
--- NOTE | 2017-04-20 18:58 | RAD ---
AP PELVIS ONE VIEW: History: Leg pain. Hip pain. Comparison: 10-22-10 FINDINGS: Sacral ala are intact. There is osteophytosis, joint space narrowing, and subchondral sclerosis invol ving each hip. Femoral head contours are maintained. No acute fracture or dislocation. Prominent dege nerative changes of the lower lumbar spine are evident. IMPRESSION: Osteoarthritic change of the lower lumbar spine and hips are pronounced for the patient's age. POS: [facility]
--- NOTE | 2017-04-20 19:06 | RAD ---
THREE VIEWS LUMBAR SPINE: Date: 04-20-17 Comparison: 04-18-17 History: Back and leg pain with numbness and tingling. FINDINGS: Five lumbar type vertebral bodies are present with intact pedicles on frontal imaging. There is new s ignificant disc space narrowing with degenerative endplate change and subchondral sclerosis centered at the L4-5 disc interspace. There is disc space narrowing at L4-5 with prominent anterior osteophyte formation. L2-3 and L3-4 disc space narrowing with anterior osteophyte formation noted. There is a suggestion of erosive change involving the inferior endplate of L4 and superior endplate o f L5, new. IMPRESSION: There is new significant degenerative change seen within the lumbar spine. Of note, there are erosive changes noted at the L4-5 disc interspace. A degree of inflammatory/infectious change on the basis o f discitis/osteomyelitis cannot be excluded. Recommend further assessment via MRI of the lumbar spine with and without contrast. Code T POS: [facility]
[2017-04-20] MEDS ORDERED: methylPREDNISolone 4 mg Tablet PO SCH (19:30)
[2017-04-20] MEDS: Mometasone/Formoterol 120 PUFF INHALER INH SCH (20:02)
[2017-04-20] MEDS ORDERED: Nitrofurantoin Monohyd/M-Cryst 100 MG CAP PO SCH (21:00)
[2017-04-20] MEDS: Melatonin 3 MG TAB PO PRN (21:43)
[2017-04-20] MEDS: Nitrofurantoin Monohyd/M-Cryst 100 MG CAP PO SCH (21:43)
[2017-04-21] MEDS: Acetaminophen 325 MG TAB PO SCH ×5 (01:05→23:57)
[2017-04-21] MEDS: Ibuprofen 800 MG TAB PO SCH ×3 (05:05→21:49)
[2017-04-21] MEDS: Mometasone/Formoterol 120 PUFF INHALER INH SCH ×2 (07:58→19:42)
[2017-04-21] MEDS ORDERED: predniSONE 20 MG TAB PO SCH (08:00)
--- NOTE | 2017-04-21 08:38 | PDOC.FM ---
- Subjective Subjective: Pt reports pain getting a little better under control. Says she has a hard time sitting up still due to pain. Still not able to get up. Denies any fevers/ chills. Denies any acute events overnight. No concern or complaints at this time. - Objective MAR Reviewed: Yes Vital Signs & Weight: Vital Signs (12 hours) Temp Pulse Resp BP Pulse Ox 04/21/17 07:58 98 18 95 04/21/17 07:08 97.8 F 109 H 16 114/79 95 04/21/17 03:40 98.6 F 80 20 150/67 H 93 L Weight Weight 127.187 kg I&O: 04/20/17 04/21/17 04/22/17 06:59 06:59 06:59 Intake Total 960 Output Total 700 Balance 260 Result Diagrams: 04/20/17 09:57 04/20/17 14:53 Radiology Reviewed by me: Yes Radiology: Venogram: No evidence DVT in either LE Pelvis X-ray: osteoarthritic change of lower lumbar spin and hips are pronounced for pts age Lumbar x-ray: New significant degenerative change seen w/n lumbar spine. There are erosive changes of L4-L5 disc interspace. A degree of inflmmatory/ infectious change on basis of discitis/osteomyelitis cannot be exculded. Recommend MRI. <Fernando Solis - Last Filed: 04/21/17 08:35> - Objective Vital Signs & Weight: Vital Signs (12 hours) Temp Pulse Resp BP Pulse Ox 04/21/17 08:00 97.8 F 98 18 04/21/17 07:58 98 18 95 04/21/17 07:08 97.8 F 109 H 16 114/79 95 04/21/17 03:40 98.6 F 80 20 150/67 H 93 L Weight Weight 127.187 kg I&O: 04/20/17 04/21/17 04/22/17 06:59 06:59 06:59 Intake Total 960 Output Total 700 Balance 260 Result Diagrams: 04/20/17 09:57 04/20/17 14:53 <Anjel Freeman - Last Filed: 04/21/17 12:33> Phys Exam - Physical Examination HEENT: moist MMs, oral pharynx no lesions Neck: no nodes, supple, full ROM Respiratory: no wheezing, no rales, no rhonchi, clear to auscultation bilateral Cardiovascular: RRR, no significant murmur, no rub Gastrointestinal: soft, non-tender, no distention, positive bowel sounds Musculoskeletal: no edema, pulses present Severe pain on mild palpation of L. thigh and back area. Pt tenses up decreased ROM due to pain in back and thigh Neurological: non-focal, normal sensation Lymphatic: no nodes Psychiatric: normal affect Deviation from normal: Pt affect better. Much improved from yesterday. Not as distraught Skin: no rash, normal turgor <KlecanFernando - Last Filed: 04/21/17 08:35> Dx/Plan (1) Intractable back pain Code(s): M54.9 - DORSALGIA, UNSPECIFIED Status: Acute Plan: -Xray of hips and lumbar spine show sever osteroarthritis for age. Lumbar X-ray concerning for osteomyelitis discitis. No fevers overnight. -Will get MRI of back to r/o above. Will await results and treat accordingly -Started on amytriptiline yesterday. Pain doing better. -Roland Tylenol/Ibuprofen. [place]ledge PRN. -Will continue with current pain regimen. May increase amytriptiline in future. -Was not able to move and perform ADL at home. Case managment consulted for possible short stint in rehab or residential to help improve mobility and with pain. -PT/OT consulted. Will await recommendations. (2) DVT (deep venous thrombosis) Code(s): I82.409 - ACUTE EMBOLISM AND THOMBOS UNSP DEEP VN UNSP LOWER EXTREMITY Status: Acute QualifierTitle: DVT location: lower extremity Affected thrombotic vein of extremity: popliteal Chronicity: unspecified Laterality: left Qualified Code(s): I82.432 - Acute embolism and thrombosis of left popliteal vein Plan: -Venogram negative for DVT at this time. Had recent DVT of popliteal vein on previous admission a few weeks ago. -Currenlty on Eliquis. will continue tx at this time. (3) UTI (urinary tract infection) Status: Acute QualifierTitle: Urinary tract infection type: site unspecified Hematuria presence: without hematuria Qualified Code(s): N39.0 - Urinary tract infection , site not specified Plan: U/A is nitrite +, LE +, Bact 4+, WBC 50-TNTC -Urine cx- E. coli positive, sens pending -Currently tx with nitrofurantonin. (4) Rheumatoid arthritis Code(s): M06.9 - RHEUMATOID ARTHRITIS, UNSPECIFIED Status: Chronic QualifierTitle: Rheumatoid arthritis location: multiple sites Rheumatoid factor presence: unspecified presence Qualified Code(s): M06.9 - Rheumatoid arthritis, unspecified Plan: on prednisone chronically at home 20 mg. Will increase to 40 mg while in hospital for steroid burst. Intractable pain possible RA flare related. -Will also review records and see if she needs to be on DMARD from reading instructor recommendations. (5) Elevated blood pressure reading Code(s): R03.0 - ELEVATED BLOOD-PRESSURE READING, W/O DIAGNOSIS OF HTN Status : Acute Plan: Multiple elevated blood pressure readings. Possibly new dx of HTN. Could be related to pain as well. -Will start on Norvasc. Will continue to monitor and adjust medication as needed. (6) Asthma Code(s): J45.909 - UNSPECIFIED ASTHMA, UNCOMPLICATED Status: Acute QualifierTitle: Asthma severity: mild Asthma persistence: intermittent Asthma complication type: uncomplicated Qualified Code(s): J45.20 - Mild intermittent asthma, uncomplicated Plan: continue home meds <Fernando Solis - Last Filed: 04/21/17 08:35> Attending Addendum - Attending Addendum I personally evaluated the patient and discussed the management with Dr. Solis. I agree with the History, Examination, Assessment and Plan documented above with any addition or exceptions noted below. Patient notes some improvement in symptoms today. However, Lumbar XR showed erosive/lytic changes in a vertebrae of unknown etiology. ESR nondiagnostic, less suspicious for osteomyelitis. I would consider possible malignancy in this patient if she truly has lytic bony lesions in association with recent DVT requiring anticoagulation. We will obtain MRI today, with anxiolysis due to her claustrophobia. Further mgmt per MRI results. Continue to modulate pain regimen as needed to obtain good control. <Anjel Freeman - Last Filed: 04/21/17 12:33>
[2017-04-21] MEDS ORDERED: methylPREDNISolone 4 mg Tablet PO SCH (09:00)
[2017-04-21] MEDS: Amlodipine 5 MG TAB PO SCH (09:03)
[2017-04-21] MEDS: Gabapentin 300 MG CAP PO SCH (09:03)
[2017-04-21] MEDS: Apixaban 5 MG TAB PO SCH ×2 (09:04→20:23)
[2017-04-21] MEDS: Nitrofurantoin Monohyd/M-Cryst 100 MG CAP PO SCH ×2 (09:04→20:23)
[2017-04-21] MEDS ORDERED: Lorazepam 2 MG/ML VIAL SLOW IVP SCH (10:37)
[2017-04-21] MEDS ORDERED: Gadobenate Dimeglumine 529 MG/1 ML (20ML VIAL) ONE (11:55)
--- NOTE | 2017-04-21 16:03 | MRI ---
EXAM: MRI OF THE LUMBAR SPINE WITH AND WITHOUT CONTRAST 04/21/17 HISTORY: Possible discitis/osteomyelitis at the L4-L5 level. COMPARISON: None. TECHNIQUE: Lumbar spine MRI is performed with and without intravenous gadolinium administration. Multisequential , multiplanar imaging us performed. CORRELATION: Lumbar spine radiograph 04/20/17. FINDINGS: There is appropriate T1 marrow signal intensity in the lumbar vertebrae. Lumbar spine vertebral heigh t is maintained. There is irregularity involving the inferior end plate of L4 and superior end plate of L5 with associated T2 and T1 hyperintensity suggesting type II Modic change. There is no significa nt edema of the intervening disc space or at the end plates. There is no abnormal enhancement. There is no MR evidence of discitis or osteomyelitis. There is symmetric signal intensity of the psoas muscles. Appropriate signal intensity of the visuali zed solid organs. The conus medullaris terminates at the mid L1 level. There is no abnormal enhancement within the thecal sac including the cauda equina and conus medullar is. T12-L1: Adequate disc hydration. No significant central canal stenosis or foraminal narrowing. L1-L2: Adequate disc hydration. No significant central canal stenosis. Neural foramina are patent. L2-L3: Adequate disc hydration. Generalized disc bulge and epidural lipomatosis results in at least m oderate central canal stenosis. Mild bilateral foraminal narrowing. There is slight clumping of the n erve roots just before the L2-L3 disc space secondary to the aforementioned central canal stenosis. L3-L4: Desiccation with moderate loss of disc space height. Generalized disc bulge, ligamentum flavum thickening and facet hypertrophy are present. There is fluid in both the intra-articular facet joint s. Though there is evidence of disc material, the majority of the central canal stenosis is due to ep idural lipomatosis. There is resultant moderate central canal stenosis. There is disc material in the left subarticular zone just superior to the L3-L4 disc space. There is presumed mass effect upon the traversing left L3 nerve root. Right neural foramen is patent. Moderate left foraminal narrowing due to disc material. The aforementioned superior disc extrusion extends into the left neural foramen. T here also is also left extraforaminal component. L4-L5: Desiccation with moderate loss of disc space height. Generalized disc bulge, ligamentum flavum thickening and facet hypertrophy are present. There is prominent epidural lipomatosis. There is resu ltant severe central canal stenosis. Moderate to severe bilateral foraminal narrowing. L5-S1: Minimal disc desiccation. There is a generalized disc bulge. There is moderate to severe centr al canal stenosis, predominantly due to epidural lipomatosis. Mild to moderate bilateral foraminal na rrowing. IMPRESSION: 1. The overall AP diameter of the central spinal canal is diminutive secondary to congenitally f oreshortened pedicles. There is multilevel degenerative disc disease with loss of disc space height a nd disc bulges as detailed above. There is significant central canal stenosis as above. Left subartic ular disc extrusion, superior to the L3-L4 disc space. There is mass effect and obscuration of gadiel sing left L3 nerve root as well as the exiting foraminal L3 nerve root. Neurosurgical consultation christina y be beneficial. 2. No MR evidence of discitis or osteomyelitis. POS: [facility]
[2017-04-21] MEDS: Melatonin 3 MG TAB PO PRN (20:23)
[2017-04-22] MEDS: Acetaminophen 325 MG TAB PO SCH ×4 (05:48→22:33)
[2017-04-22] MEDS: Ibuprofen 800 MG TAB PO SCH ×3 (05:48→22:32)
[2017-04-22] MEDS: Mometasone/Formoterol 120 PUFF INHALER INH SCH ×2 (06:19→18:50)
[2017-04-22] MEDS: Amlodipine 5 MG TAB PO SCH (08:38)
[2017-04-22] MEDS: Apixaban 5 MG TAB PO SCH ×2 (08:38→20:12)
[2017-04-22] MEDS: predniSONE 20 MG TAB PO SCH (08:38)
[2017-04-22] MEDS: Nitrofurantoin Monohyd/M-Cryst 100 MG CAP PO SCH ×2 (08:40→20:12)
[2017-04-22] MEDS: Gabapentin 300 MG CAP PO SCH ×3 (08:41→20:12)
--- NOTE | 2017-04-22 09:01 | PDOC.FM ---
- Subjective Subjective: Pt reports doing well overnight. Still says having a hard time getting up and moving around. Says pain worse when she is sittin up. Still having pain in back and left thigh. Says pain is being controlled at this time. Will flare up at times. Denies any acute events overnight. Denies any fevers or chills. Denies numbness or tingling at this time. No other concerns or complaints at this time. - Objective MAR Reviewed: Yes Vital Signs & Weight: Vital Signs (12 hours) Temp Pulse Resp BP BP BP Pulse Ox 04/22/17 08:38 100 132/93 H 04/22/17 07:19 98.3 F 100 16 132/93 H 96 04/22/17 04:20 98 F 106 H 18 129/94 H 95 Weight Weight 129.954 kg I&O: 04/21/17 04/22/17 04/23/17 06:59 06:59 06:59 Intake Total 960 2700 Output Total 700 Balance 260 2700 Result Diagrams: 04/20/17 09:57 04/20/17 14:53 Radiology Reviewed by me: Yes Radiology: 04/21 Lumbar Spine MRI: Overall AP diameter of central spinal canal is diminutive 2/2 congenitally foreshortened pedicles. Multilevel degenerative disc dz with loss of disc space height and disc bulges. Sig. central cancal stenosis. Left subarticular dis extrusion, superior to L3-L4 space. Mass effect and obscuration of traversing L3 nerve root as well as the exiting foraminal L3 nerve root. Neurosurgical consultation may be beneficial. No evidence discitis/osteo <Fernando Solis - Last Filed: 04/22/17 09:05> - Objective Vital Signs & Weight: Vital Signs (12 hours) Temp Pulse Pulse Pulse Resp BP BP 04/22/17 11:14 98.5 F 107 H 18 04/22/17 10:32 113 H 106 H 138/102 H 04/22/17 08:38 100 132/93 H 04/22/17 08:00 98.3 F 100 16 04/22/17 07:19 98.3 F 100 16 04/22/17 04:20 98 F 106 H 18 BP BP BP Pulse Ox 04/22/17 11:14 132/90 98 04/22/17 10:32 184/118 H 04/22/17 08:38 04/22/17 08:00 04/22/17 07:19 132/93 H 96 04/22/17 04:20 129/94 H 95 Weight Weight 129.954 kg I&O: 04/21/17 04/22/17 04/23/17 06:59 06:59 06:59 Intake Total 960 2700 360 Output Total 700 Balance 260 2700 360 Result Diagrams: 04/20/17 09:57 04/20/17 14:53 <Anjel Freeman - Last Filed: 04/22/17 12:08> Phys Exam - Physical Examination HEENT: moist MMs, oral pharynx no lesions Neck: no nodes, no JVD, supple Respiratory: no wheezing, no rales, no rhonchi, clear to auscultation bilateral Cardiovascular: RRR, no significant murmur, no rub Gastrointestinal: soft, non-tender, no distention, positive bowel sounds Musculoskeletal: no edema, pulses present Still has severe pain on mild palpatin. When squeezing calfs causes legs to be spastic Neurological: non-focal, normal sensation, moves all 4 limbs Reports normal sensation on pinprick. Causes some tingling Psychiatric: normal affect Skin: no rash, normal turgor, cap refill <2 seconds <Fernando Solis - Last Filed: 04/22/17 09:05> Dx/Plan (1) Bulging of intervertebral disc Code(s): OLN3118 - Status: Acute (2) Central stenosis of spinal canal Code(s): M48.00 - SPINAL STENOSIS, SITE UNSPECIFIED Status: Acute (3) Intractable back pain Code(s): M54.9 - DORSALGIA, UNSPECIFIED Status: Acute (4) DVT (deep venous thrombosis) Code(s): I82.409 - ACUTE EMBOLISM AND THOMBOS UNSP DEEP VN UNSP LOWER EXTREMITY Status: Acute QualifierTitle: DVT location: lower extremity Affected thrombotic vein of extremity: popliteal Chronicity: unspecified Laterality: left Qualified Code(s): I82.432 - Acute embolism and thrombosis of left popliteal vein Plan: (5) UTI (urinary tract infection) Status: Acute QualifierTitle: Urinary tract infection type: site unspecified Hematuria presence: without hematuria Qualified Code(s): N39.0 - Urinary tract infection , site not specified (6) Rheumatoid arthritis Code(s): M06.9 - RHEUMATOID ARTHRITIS, UNSPECIFIED Status: Chronic QualifierTitle: Rheumatoid arthritis location: multiple sites Rheumatoid factor presence: unspecified presence Qualified Code(s): M06.9 - Rheumatoid arthritis, unspecified (7) Elevated blood pressure reading Code(s): R03.0 - ELEVATED BLOOD-PRESSURE READING, W/O DIAGNOSIS OF HTN Status : Acute (8) Asthma Code(s): J45.909 - UNSPECIFIED ASTHMA, UNCOMPLICATED Status: Acute QualifierTitle: Asthma severity: mild Asthma persistence: intermittent Asthma complication type: uncomplicated Qualified Code(s): J45.20 - Mild intermittent asthma, uncomplicated - Plan Plan: (1) Intractable Pain due to Central Canal Stenosis, Bulging disc and Nerve compression at L3 Nerve root -Xray of hips and lumbar spine show sever osteroarthritis for age. Lumbar X-ray concerning for osteomyelitis discitis. No fevers overnight. -MRI of Lumbar Spine shows findings described above. Shows severe Central canal stenosis, Bulging disc and compression of L3 nerve. No sign discitis or osteo. -Started on amytriptiline. Pain doing better. -Roland Tylenol/Ibuprofen. [place] PRN. -Will increase Gapapentin at this time to help with neuropathic pain. -Will continue with current pain regimen. May increase amytriptiline in future. -Neurosurgery- Dr. Randle consulted for evaluation of Back with findings on MRI -Will await recommendations. -Was not able to move and perform ADL at home. Case managment consulted for possible short stint in rehab or fpc to help improve mobility and with pain. -PT/OT consulted. Will await recommendations. (2) DVT (deep venous thrombosis) -Venogram negative for DVT at this time. Had recent DVT of popliteal vein on previous admission a few weeks ago. -Dilma on Eliquis. will continue tx at this time. (3) UTI (urinary tract infection) U/A is nitrite +, LE +, Bact 4+, WBC 50-TNTC -Urine cx- E. coli positive, sensitive to current abx -Currently tx with nitrofurantonin. (4) Rheumatoid arthritis on prednisone chronically at home 20 mg. Will increase to 40 mg while in hospital for steroid burst. Intractable pain possible RA flare related. 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 (5) Elevated blood pressure reading Multiple elevated blood pressure readings. Possibly new dx of HTN. Could be related to pain as well. -Will start on Norvasc. Will continue to monitor and adjust medication as needed. BP lower and stable overnight (6) Asthma continue home meds <Fernando Solis - Last Filed: 04/22/17 09:05> Attending Addendum - Attending Addendum I personally evaluated the patient and discussed the management with Dr. Solis. I agree with the History, Examination, Assessment and Plan documented above with any addition or exceptions noted below. Patient with improvement in pain. Her MRI shows moderate to severe spinal stenosis and some disc abnormalities. We have consulted neurosurgery and awaiting their recommendations. <Anjel Freeman - Last Filed: 04/22/17 12:08>
[2017-04-22] MEDS: Amitriptyline HCl 25 MG TAB PO SCH ×2 (19:23→19:27)
[2017-04-22] MEDS ORDERED: Amitriptyline HCl 25 MG TAB PO SCH (20:00)
[2017-04-22] MEDS: Melatonin 3 MG TAB PO PRN (22:32)
--- NOTE | 2017-04-22 22:46 | CON ---
DATE OF CONSULTATION: 04/22/2017 HISTORY OF PRESENT ILLNESS: Ms. Chaparro was admitted 2 days ago for intractable back pain and some left-sided hip pain. The hip pain she actually had for around 3 month. The lower back pain started y esterday though she really does not feel that the back pain is that of much of an issue, but it is th e hip pain which mostly she feels when she is up and walking. At times, she does feel pain with inte rnal and external rotation of the left hip, it is not consistent and she demonstrates this to me at [facility] this morning. She is morbidly obese and this certainly does not help her situation. There w as an MRI performed yesterday in the hospital and she does have a fair degree of degenerative disease at multiple levels of the lumbar spine. She also has significant epidural lipomatosis from around L 3-L5. All this is significantly central canal, certainly anywhere from back pain to any kind o f lower extremity symptoms including neurogenic claudication. She walks with a walker at present. PHYSICAL EXAMINATION: She has 4/5 strength in all muscle lower extremity movements bilaterally. She has no sensory disturbance at the moment in either extremity, but does report that occasionally she gets left anterior tingling, but this is not occurring at the moment. Neurosurgery standpoint, I thi nk right now there is nothing that needs to be definitively done surgically inpatient. She does not have any saddle anesthesia or cauda equina like symptoms. As such, I would recommend pain management and pain control either with medications or by a referral to outpatient pain management with Lizbeth torrez and [facility] or some other group in town. We will ourselves also follow up with the patient in our clinic and plan for further treatment schedule for her.
[2017-04-23] MEDS: Ibuprofen 800 MG TAB PO SCH ×2 (05:22→14:42)
[2017-04-23] MEDS: Acetaminophen 325 MG TAB PO SCH ×2 (05:22→12:54)
[2017-04-23 06:44] LABS: Calc. Creatinine Clearance 221 mL/min (70-130); Estimated GFR-MDRD Greater than 90
[2017-04-23] MEDS: Mometasone/Formoterol 120 PUFF INHALER INH SCH (08:01)
--- NOTE | 2017-04-23 08:20 | PDOC.FM ---
- Subjective Subjective: Pt doing good. Says pain is being well controlled. Pain is aggrevated when she moves. Denies any acute events overnight. - Objective Vital Signs & Weight: Vital Signs (12 hours) Temp Pulse Resp BP BP Pulse Ox 04/23/17 04:00 98.4 F 96 18 138/99 H 97 04/22/17 22:35 95 22 H 172/97 H Weight Weight 130.226 kg I&O: 04/22/17 04/23/17 04/24/17 06:59 06:59 06:59 Intake Total 2700 1320 Output Total 1100 Balance 2700 220 Result Diagrams: 04/23/17 05:17 04/23/17 05:17 Radiology Reviewed by me: Yes (No new imaging to review today) <Fernando Solis - Last Filed: 04/23/17 08:21> - Objective Vital Signs & Weight: Vital Signs (12 hours) Temp Pulse Resp BP BP Pulse Ox 04/23/17 08:41 98.3 F 98 20 04/23/17 08:38 98 04/23/17 07:30 98.3 F 98 20 130/85 97 04/23/17 04:00 98.4 F 96 18 138/99 H 97 Weight Weight 130.226 kg I&O: 04/22/17 04/23/17 04/24/17 06:59 06:59 06:59 Intake Total 2700 1320 Output Total 1100 500 Balance 2700 220 -500 Result Diagrams: 04/23/17 05:17 04/23/17 05:17 <Anjel Freeman - Last Filed: 04/23/17 12:30> Phys Exam - Physical Examination Constitutional: NAD HEENT: PERRLA, moist MMs, oral pharynx no lesions Neck: no nodes, no JVD, supple, full ROM Respiratory: no wheezing, no rales, no rhonchi, clear to auscultation bilateral Cardiovascular: RRR, no significant murmur, no rub Gastrointestinal: soft, non-tender, no distention, positive bowel sounds Musculoskeletal: no edema, pulses present Has spastisity when palpating lower extremities Tender to palpation of thigh and back Neurological: non-focal, normal sensation, moves all 4 limbs Lymphatic: no nodes Psychiatric: normal affect, A&O x 3 Skin: no rash, normal turgor, cap refill <2 seconds <Fernando Solis - Last Filed: 04/23/17 08:21> Dx/Plan (1) Bulging of intervertebral disc Code(s): BXK9347 - Status: Acute (2) Central stenosis of spinal canal Code(s): M48.00 - SPINAL STENOSIS, SITE UNSPECIFIED Status: Acute (3) Intractable back pain Code(s): M54.9 - DORSALGIA, UNSPECIFIED Status: Acute (4) DVT (deep venous thrombosis) Code(s): I82.409 - ACUTE EMBOLISM AND THOMBOS UNSP DEEP VN UNSP LOWER EXTREMITY Status: Acute QualifierTitle: DVT location: lower extremity Affected thrombotic vein of extremity: popliteal Chronicity: unspecified Laterality: left Qualified Code(s): I82.432 - Acute embolism and thrombosis of left popliteal vein (5) UTI (urinary tract infection) Status: Acute QualifierTitle: Urinary tract infection type: site unspecified Hematuria presence: without hematuria Qualified Code(s): N39.0 - Urinary tract infection , site not specified (6) Rheumatoid arthritis Code(s): M06.9 - RHEUMATOID ARTHRITIS, UNSPECIFIED Status: Chronic QualifierTitle: Rheumatoid arthritis location: multiple sites Rheumatoid factor presence: unspecified presence Qualified Code(s): M06.9 - Rheumatoid arthritis, unspecified Plan: (7) Elevated blood pressure reading Code(s): R03.0 - ELEVATED BLOOD-PRESSURE READING, W/O DIAGNOSIS OF HTN Status : Acute Plan: (8) Asthma Code(s): J45.909 - UNSPECIFIED ASTHMA, UNCOMPLICATED Status: Acute QualifierTitle: Asthma severity: mild Asthma persistence: intermittent Asthma complication type: uncomplicated Qualified Code(s): J45.20 - Mild intermittent asthma, uncomplicated - Plan Plan: (1) Intractable Pain due to Central Canal Stenosis, Bulging disc and Nerve compression at L3 Nerve root -Xray of hips and lumbar spine show sever osteroarthritis for age. Lumbar X-ray concerning for osteomyelitis discitis. No fevers overnight. -MRI of Lumbar Spine shows findings described above. Shows severe Central canal stenosis, Bulging disc and compression of L3 nerve. No sign discitis or osteo. -Started on amytriptiline. Pain doing better. -Roland Tylenol/Ibuprofen. [place] PRN. -Will increase Gapapentin at this time to help with neuropathic pain. -Will continue with current pain regimen. May increase amytriptiline in future. -Neurosurgery- Dr. Randle consulted for evaluation of Back with findings on MRI -Will set up appointment for pt outpt -Recommends she get set up with Pain specialist as well. -Was not able to move and perform ADL at home. Case managment consulted for possible short stint in rehab or senior care to help improve mobility and with pain. Rehab pending insurance. Will get home health set up with PT. Likely home today with home health -PT/OT consulted-recommend home health w/ PT and Edwardo chair (2) DVT (deep venous thrombosis) -Venogram negative for DVT at this time. Had recent DVT of popliteal vein on previous admission a few weeks ago. -Currenlty on Eliquis. will continue tx at this time. (3) UTI (urinary tract infection) U/A is nitrite +, LE +, Bact 4+, WBC 50-TNTC -Urine cx- E. coli positive, sensitive to current abx -Currently tx with nitrofurantonin. (4) Rheumatoid arthritis on prednisone chronically at home 20 mg. Will increase to 40 mg while in hospital for steroid burst. Intractable pain possible RA flare related. -Will also review records and see if she needs to be on DMARD from sanitation truck cleaner recommendations. (5) Elevated blood pressure reading Multiple elevated blood pressure readings. Possibly new dx of HTN. Could be related to pain as well. -Will start on Norvasc. BP elevated yesterday. Will increase norvasc at this time. (6) Asthma continue home meds <Fernando Solis - Last Filed: 04/23/17 08:21> Attending Addendum - Attending Addendum I personally evaluated the patient and discussed the management with Dr. Solis. I agree with the History, Examination, Assessment and Plan documented above with any addition or exceptions noted below. Patient has improved pain control with augmentation of her medical therapy. NSGY has seen patient for her abnormal MRI and recommends further outpatient treatment with pain mgmt and follow up with their group. Patient has HH in process of being set up, will discharge home today. <Anjel Freeman - Last Filed: 04/23/17 12:30>
[2017-04-23] MEDS: predniSONE 20 MG TAB PO SCH (08:38)
[2017-04-23] MEDS: Gabapentin 300 MG CAP PO SCH ×2 (08:38→14:42)
[2017-04-23] MEDS: Apixaban 5 MG TAB PO SCH (08:38)
[2017-04-23] MEDS: Nitrofurantoin Monohyd/M-Cryst 100 MG CAP PO SCH (08:39)
[2017-04-23] MEDS ORDERED: Amitriptyline HCl 25 MG TAB PO SCH (09:00)
[2017-04-23] MEDS ORDERED: Amlodipine 5 MG TAB PO SCH (09:00)
[2017-04-23 12:58] VITALS: TEMP 98.4
[2017-04-24 06:58] VITALS: BP 123/85
--- NOTE | 2017-04-25 08:24 | DIS-2 ---
DATE OF ADMISSION: 04/20/2017 DATE OF DISCHARGE: 04/23/2017. ADMITTING ATTENDING: Dr. Anjel Freeman RESIDENT: Fernando oSlis MD, PGY-1. IMAGING: She initially on 04/20/2017 got a lumbar spine x-ray which showed there is new significant degenerative change seen within the lumbar spine. Of note, there are erosive changes noted at the L4 -L5 disk interspace. The degree of inflammatory/infectious changes on the basis of diskitis or osteo myelitis cannot be excluded. Recommend further assessment with MRI. We had a pelvis x-ray on 2016 as well which showed osteoarthritic changes of the lower lumbar spine and the hips are pronounce d per the patient's age. We also got a venogram on 04/20/2017 which showed no evidence for deep veno us thrombosis of either lower extremity. We got a lumbar spine MRI on 04/21/2017 which showed: 1. The overall AP diameter of the central spinal canal was terminated secondary to congenitally fore shortened. There is multilevel degenerative disk disease and also disk space heights and disk bulges as detailed above. There is significant central canal stenosis above the left subarticular disk extr usion superior to the L3-L4 disk space. There is mass effect and obscuration of the traversing left L3 nerve root as well as the exiting foraminal L3 nerve root. Neurosurgical consultation may be of a n approach. 2. No MR evidence of diskitis or osteomyelitis. We also consulted neurosurgery Marques VENTURA on 04/22/2017. PRIMARY DIAGNOSES: 1. Bulging of intravertebral disk. 2. Central stenosis of the spinal canal. 3. Intractable back pain. 4. History of recent deep venous thrombosis. 5. Urinary tract infection. 6. Rheumatoid arthritis. 7. Elevated blood pressure reading. 8. Asthma. DISCHARGE MEDICATIONS: Amitriptyline 20 mg p.o. daily, amlodipine 5 mg p.o. daily, gabapentin 300 mg p.o. t.i.d., ibuprofen 800 mg p.o. q.8 hours, Melatonin 3 mg p.o. at bedtime p.r.n., nitrofurantoin 100 mg p.o. b.i.d. for 5 more days, Eliquis 5 mg p.o. b.i.d., Excedrin Migraine 1 tablet p.o. daily, Symbicort 1 puff inhaler b.i.d., hydrocodone 5/325 one to two tabs p.o. q.4 hours, pantoprazole 40 mg p.o. daily, prednisone 20 mg p.o. q.a.m. with meals and albuterol sulfate nebs 2 puffs nebulized q.4 hours as needed. HISTORY OF PRESENT ILLNESS AND BRIEF HOSPITAL COURSE: This is a 47-year-old female that came into [facility] ER due to pain in her left thigh and back area. She said the pain was a 10/10, but hurt worse when she moved and may hurt so bad that she could not get out of bed, though she said she peed herself in the bed. She was recently just discharged a few weeks ago with a recently diagnosed DVT and sent ho me with Rafael and then during this time, she went to the doctor and then seen and then came to the ER previously the Thursday before and had seen that her DVT was resolved. She had been taking all of h er medications, so at this time we admitted her. We got the lumbar x-ray, we got the hip x-ray which showed bad osteoarthritis and we got the venogram which showed resolved DVTs. We would continue her blood thinners. She would have no lab abnormalities concerning. We did get a UA which showed posit navin nitrites, positive leukocyte esterase, positive urine white blood cells 50 to too numerous to cou nt and urine bacteria 4+. She did report having some dysuria and pain with urination. We started he r on nitrofurantoin. The sensitivities came back E. coli sensitive to nitrofurantoin, so we would co ntinue the antibiotics and then send her home on antibiotics for that. With the back pain, the lumba r x-ray came back concerning for osteodiscitis and with her intractable pain, we got a lumbar MRI whi ch showed changes right above. At this time, we thought maybe she would benefit from surgery. Consu lted Neurosurgery. They decided that it would be best that she follow up with them as an outpatient and then also be referred to a pain specialist for possible injections in the future. Also, we consu lted PT, OT. They worked with her and assessed that she would benefit from home health PT and OT sin ce she lives by herself, so we consulted case management to get that set up, so finally after getting home health setup, we discharged her home on the with a followup with the neurosurgeon and to sanjuanita et set up with a pain referral. Also, it should be noted that the patient also might have some under lying like depression, anxiety. She was kind of histrionic, you would mildly touch her and she would have lots and lots of pain, so I am not sure if all the pain is related to the findings in the back MRI or some if it is related to psych, that is why we started her on amitriptyline and it did seem to help improve her symptoms. We also increased her gabapentin 300 t.i.d., which also seemed to help a s well. Also during this time while she was here, she kept having elevated blood pressures in the 170s, 164/1 07, 184/118, 138/106; so at this time, we decided she likely probably had underlying diagnosis of hyp ertension and started her on amlodipine 5 mg. This did improve her blood pressure and bring it down into 123/85 and 128/86. DISPOSITION: Stable. DISCHARGE LOCATION: Home with home health. DIET: Regular diet. ACTIVITY: As tolerated. FOLLOWUP: She will need to follow up with Neurosurgery within the next few weeks. She will need to follow up with her primary care physician in 14 days for hospital followup.
[2017-04-26] MEDS ORDERED: Apixaban 5 MG TAB PO SCH (09:00)
== END 2017-04-23 15:51 | disposition home or self-care (01) ==
LOC: ERS 05:53 → ERHOLD 10:08 → 2SW 14:25
PROVIDERS: ADMIT Student in an Organized Health Care Education/Training Program; ATTEND Student in an Organized Health Care Education/Training Program
DX: M51.06 Intervertebral disc disorders with myelopathy, lumbar region (principal); M48.00 Spinal stenosis, site unspecified; M54.9 Dorsalgia, unspecified; N39.0 Urinary tract infection, site not specified; M06.9 Rheumatoid arthritis, unspecified; R03.0 Elevated blood-pressure reading, without diagnosis of hypertension; J45.909 Unspecified asthma, uncomplicated; E66.01 Morbid (severe) obesity due to excess calories; M19.90 Unspecified osteoarthritis, unspecified site; F17.200 Nicotine dependence, unspecified, uncomplicated; Z68.42 Body mass index [BMI] 45.0-49.9, adult; Z79.01 Long term (current) use of anticoagulants; Z79.82 Long term (current) use of aspirin; Z79.52 Long term (current) use of systemic steroids; Z79.899 Other long term (current) drug therapy; Z88.5 Allergy status to narcotic agent; Z98.51 Tubal ligation status; Z90.710 Acquired absence of both cervix and uterus; Z86.718 Personal history of other venous thrombosis and embolism
CPT/HCPCS: 36415; 72100; 72158; 72170; 80053; 81003; 81015; 82550; 82565; 85014; 85018; 85025; 85049; 85652; 87077; 87086; 87186; 93970; 96374; 96375; A9579; G0378; G8978-GP-CM; G8979-GP-CK; G8987-GO-CJ; G8988-GO-CH; J1885; J2060; J2270; J7506

== ENCOUNTER 2017-07-27 05:38 | Emergency (ER) | payer OTHER ==
[2017-07-27 07:03] LABS: ALT (SGPT) 19 U/L (8-55); AST (SGOT) 15 U/L (5-34); Albumin 3.6 g/dL (3.5-5.0); Alkaline Phosphatase 74 U/L (40-150); Anion Gap 12 mmol/L (10-20); BUN (Urea Nitrogen) 9 mg/dL (7.0-18.7); Bilirubin, Total Less than 0.2 mg/dL (0.2-1.2); Calc. Creatinine Clearance 0 mL/min (70-130); Calcium 8.7 mg/dL (7.8-10.44); Carbon Dioxide 23 mmol/L (22-29); Chloride 113 mmol/L (98-107); Estimated GFR-MDRD Greater than 90; Globulin 4.2 g/dL (2.4-3.5); Glucose 101 mg/dL (70-105); Lipase 39 U/L (8-78); Potassium 3.5 mmol/L (3.5-5.1); Protein, Total 7.8 g/dL (6.0-8.3); Sodium 144 mmol/L (136-145)
[2017-07-27] MEDS ORDERED: Azithromycin 250 MG TAB ONE (07:10)
[2017-07-27] MEDS ORDERED: Ketorolac Tromethamine 30 MG/ML VIAL ONE (07:10)
[2017-07-27] MEDS ORDERED: Lidocaine 1% PF 5 ML VIAL ONE (07:10)
[2017-07-27] MEDS ORDERED: cefTRIAXone\\ROCEPHIN 250 MG VIAL ONE (07:10)
[2017-07-27 07:18] LABS: Mean Corpuscular HGB CONC 34.4 g/dL (32.0-36.0); Mean Corpuscular Hemoglobin 35.9 pg (27.0-31.0); Mean Platelet Volume 6.6 fL (7.4-10.4); Platelet Count 92 thou/uL (130-400); RBC Distribution Width 14.3 % (11.5-14.5); Red Blood Cell (RBC) Count 3.35 mill/uL (4.20-5.40); White Blood Cell (WBC) Count 4.1 thou/uL (4.8-10.8)
[2017-07-27 07:21] LABS: Band 1 % (5-11); Lymphocytes 62 % (21-51); MDiff Complete? YES; Macrocytosis SLIGHT = 6-15 cells (100X) (0-5/hpf); Monocytes 8 % (0-10); Neutrophil 29 % (42-75); PLT Morphology Comment Appears Decreased; Polychromasia SLIGHT = 2-3 cells (100X) (0-2/hpf)
[2017-07-28 22:31] LABS: Chlamydia by PCR Not Detected (NotDetected); GC by PCR Not Detected (NotDetected)
== END 2017-07-27 08:20 | disposition home or self-care (01) ==
LOC: ERS 05:38
DX: N89.8 Other specified noninflammatory disorders of vagina (principal); M54.9 Dorsalgia, unspecified; G89.29 Other chronic pain; R10.13 Epigastric pain; M19.90 Unspecified osteoarthritis, unspecified site; J45.909 Unspecified asthma, uncomplicated; I10 Essential (primary) hypertension; F41.9 Anxiety disorder, unspecified; Z79.01 Long term (current) use of anticoagulants; Z79.891 Long term (current) use of opiate analgesic; Z79.899 Other long term (current) drug therapy
CPT/HCPCS: 36415; 80053; 83690; 85025; 87480; 87491; 87510; 87591; 87660; 96372; J0696; J1885; J2001

== ENCOUNTER 2017-08-04 19:59 | Emergency (ER) | payer OTHER ==
[~2017-08-04 19:59] MED LIST: ISOVUE-370 76%-LOCM 1 ML ONE
[2017-08-04] MEDS ORDERED: Ketorolac Tromethamine 30 MG/ML VIAL ONE (20:21)
[2017-08-04 20:30] LABS: #Basophils 0.1 thou/uL (0.0-0.2); #Lymphocytes 2.6 thou/uL (1.20-3.40); #Monocytes 0.5 thou/uL (0.11-0.59); #Neutrophils 2.9 thou/uL (1.40-6.50); %Basophils 1.1 % (0.0-1.0); %Eosinophils 0.2 % (0.0-10.0); %Lymphocytes 42.5 % (21.0-51.0); %Monocytes 7.5 % (0.0-10.0); %Neutrophils 48.7 % (42.0-75.0); Hemoglobin 12.9 g/dL (12.0-16.0); Mean Corpuscular HGB CONC 32.7 g/dL (32.0-36.0); Mean Corpuscular Hemoglobin 35.2 pg (27.0-31.0); Mean Platelet Volume 7.6 fL (7.4-10.4); Platelet Count 107 thou/uL (130-400); RBC Distribution Width 14.2 % (11.5-14.5); Red Blood Cell (RBC) Count 3.67 mill/uL (4.20-5.40)
[2017-08-04 20:39] LABS: ALT (SGPT) 18 U/L (8-55); AST (SGOT) 23 U/L (5-34); Alkaline Phosphatase 90 U/L (40-150); Anion Gap 15 mmol/L (10-20); BUN (Urea Nitrogen) 8 mg/dL (7.0-18.7); Bilirubin, Total 0.3 mg/dL (0.2-1.2); Calc. Creatinine Clearance 0 mL/min (70-130); Calcium 9.6 mg/dL (7.8-10.44); Carbon Dioxide 22 mmol/L (22-29); Chloride 103 mmol/L (98-107); Estimated GFR-MDRD 90; Globulin 5.7 g/dL (2.4-3.5); Glucose 98 mg/dL (70-105); Lipase 26 U/L (8-78); Potassium 4.4 mmol/L (3.5-5.1); Protein, Total 9.7 g/dL (6.0-8.3); Sodium 136 mmol/L (136-145)
--- NOTE | 2017-08-04 22:13 | CT ---
ABDOMEN AND PELVIC CT SCAN WITH IV CONTRAST: 08/04/17 HISTORY: 47-year-old female with history of right sided abdominal pain. Prior hysterectomy. COMPARISON: 09/26/16. FINDINGS: The lung bases are clear. The visualized liver, gallbladder, pancreas, spleen, and adrenal glands are unremarkable. No renal calculus or obstruction. Normal appearing appendix. No large or small rai l obstruction. Status post hysterectomy. No evidence of bowel obstruction, abscess, adenopathy or abn ormal fluid collection. IMPRESSION: No significant acute process in the abdomen or pelvis. Normal appearing appendix. No renal calculus o r acute obstruction. POS: [facility]
== END 2017-08-04 21:11 | disposition home or self-care (01) ==
LOC: ERS 19:59
DX: R10.11 Right upper quadrant pain (principal); I10 Essential (primary) hypertension; J45.909 Unspecified asthma, uncomplicated; F41.9 Anxiety disorder, unspecified; M06.9 Rheumatoid arthritis, unspecified; Z86.718 Personal history of other venous thrombosis and embolism; Z79.899 Other long term (current) drug therapy
CPT/HCPCS: 74177; 80053; 83690; 85025; 96374; J1885

== ENCOUNTER 2017-09-29 01:19 | Emergency (ER) | payer OTHER ==
[2017-09-29] MEDS ORDERED: Ketorolac Tromethamine 30 MG/ML VIAL ONE (02:37)
[2017-09-29] MEDS ORDERED: Adacel (T-DAP) 0.5 ML VIAL ONE (02:37)
[2017-09-29] MEDS ORDERED: Lidocaine 1% w/Epinephrine 1:100K 20 ML VIAL ONE (02:41)
[2017-09-29 02:46] LABS: INR-International Normal Ratio 1.1; PTT 24.1 SEC (22.9-36.1); Prothrombin Time 14.1 SEC (12.0-14.7)
[2017-09-29 02:48] LABS: Anion Gap 17 mmol/L (10-20); BUN (Urea Nitrogen) 6 mg/dL (7.0-18.7); Calc. Creatinine Clearance 0 mL/min (70-130); Calcium 9.1 mg/dL (7.8-10.44); Carbon Dioxide 18 mmol/L (22-29); Chloride 104 mmol/L (98-107); Estimated GFR-MDRD Greater than 90; Glucose 108 mg/dL (70-105); Sodium 136 mmol/L (136-145)
[2017-09-29 03:03] LABS: Potassium 2.9 mmol/L (3.5-5.1)
[2017-09-29 03:04] LABS: #Lymphocytes 2.9 thou/uL (1.20-3.40); #Monocytes 0.5 thou/uL (0.11-0.59); #Neutrophils 2.6 thou/uL (1.40-6.50); %Eosinophils 0.4 % (0.0-10.0); %Lymphocytes 47.5 % (21.0-51.0); %Monocytes 8.6 % (0.0-10.0); %Neutrophils 43.5 % (42.0-75.0); Anisocytosis SLIGHT = 6-15 cells (100X) (0-5/hpf); Hemoglobin 11.1 g/dL (12.0-16.0); MDiff Complete? YES; Macrocytosis SLIGHT = 6-15 cells (100X) (0-5/hpf); Mean Corpuscular HGB CONC 34.2 g/dL (32.0-36.0); Mean Corpuscular Hemoglobin 38.5 pg (27.0-31.0); Mean Platelet Volume 8.9 fL (7.4-10.4); PLT Morphology Comment Appears Decreased; Platelet Count 51 thou/uL (130-400); Red Blood Cell (RBC) Count 2.88 mill/uL (4.20-5.40); White Blood Cell (WBC) Count 6.1 thou/uL (4.8-10.8)
[2017-09-29] MEDS ORDERED: Bacitracin Zinc 1 Packet ONE (04:32)
--- NOTE | 2017-09-29 07:22 | CT ---
CT HEAD NONCONTRAST: INDICATIONS: Posttraumatic pain. COMPARISON: Reference made to a 12/01/2010 exam. FINDINGS: There is prominent right scalp hematoma. There is no intracranial hemorrhage, mass effect, or midlin e shift. No ventriculomegaly. IMPRESSION: 1. No acute intracranial abnormality. 2. Right scalp hematoma. Notification of findings placed at 0144 hours on 09/29/2017. CODE CR POS: [email or web address]
--- NOTE | 2017-09-29 07:23 | CT ---
CERVICAL SPINE CT NONCONTRAST: INDICATIONS: Posttraumatic neck injury. Pain. FINDINGS: There is moderate multilevel degenerative change with reversal of the normal cervical lordosis. Beam attenuation artifact from overlying shoulders limits evaluation. No obvious acute compression fract ure or subluxation. The craniocervical junction is intact. There is effacement of the ventral aspec t of the vertebral canal, on the basis of multilevel disk osteophyte formation. IMPRESSION: Limited exam without definite acute osseous abnormality of the cervical spine. There is moderate mul tilevel degenerative change. POS: [facility]
== END 2017-09-29 04:38 | disposition home or self-care (01) ==
LOC: ERS 01:19
DX: S06.0X9A Concussion with loss of consciousness of unspecified duration, initial encounter (principal); S01.81XA Laceration without foreign body of other part of head, initial encounter; S00.03XA Contusion of scalp, initial encounter; F41.9 Anxiety disorder, unspecified; Z79.899 Other long term (current) drug therapy; J45.909 Unspecified asthma, uncomplicated; I10 Essential (primary) hypertension; Y04.0XXA Assault by unarmed brawl or fight, initial encounter
CPT/HCPCS: 12011; 36415; 70450; 72125; 80048; 85025; 85610; 85730; 90471; 90715; 96372; G0390; J1885; J2001

== ENCOUNTER 2017-10-06 09:49 | Emergency (ER) | payer OTHER ==
[2017-10-06] MEDS ORDERED: Lidocaine 4% Cream 5 GM TUBE w/ Tegaderm ONE (09:57)
== END 2017-10-06 10:38 | disposition home or self-care (01) ==
LOC: ERS 09:49
DX: Z48.02 Encounter for removal of sutures (principal); M06.9 Rheumatoid arthritis, unspecified; J45.909 Unspecified asthma, uncomplicated; I10 Essential (primary) hypertension; F41.9 Anxiety disorder, unspecified; Z79.899 Other long term (current) drug therapy

== ENCOUNTER 2017-10-31 12:57 | Observation (INO) | payer OTHER ==
[2017-10-31] MEDS ORDERED: Ondansetron ODT 4 MG TAB ONE ×2 (13:36→13:52)
[2017-10-31 13:56] LABS: Hemoglobin 9.9 g/dL (12.0-16.0); Mean Corpuscular HGB CONC 33.9 g/dL (32.0-36.0); Mean Corpuscular Hemoglobin 39.4 pg (27.0-31.0); Mean Platelet Volume 9.2 fL (7.4-10.4); Platelet Count 53 thou/uL (130-400); RBC Distribution Width 15.5 % (11.5-14.5); Red Blood Cell (RBC) Count 2.51 mill/uL (4.20-5.40); White Blood Cell (WBC) Count 5.1 thou/uL (4.8-10.8)
[2017-10-31 14:08] LABS: #Lymphocytes 2.3 thou/uL (1.20-3.40); #Monocytes 0.3 thou/uL (0.11-0.59); #Neutrophils 2.5 thou/uL (1.40-6.50); %Basophils 0.5 % (0.0-1.0); %Eosinophils 0.1 % (0.0-10.0); %Lymphocytes 45.1 % (21.0-51.0); %Monocytes 5.5 % (0.0-10.0); %Neutrophils 48.8 % (42.0-75.0); Anisocytosis SLIGHT = 6-15 cells (100X) (0-5/hpf); MDiff Complete? YES; Macrocytosis MODERATE=16-30 cells (100X) (0-5/hpf); PLT Morphology Comment Appears Decreased; Polychromasia SLIGHT = 2-3 cells (100X) (0-2/hpf)
[2017-10-31 14:15] LABS: ALT (SGPT) 11 U/L (8-55); AST (SGOT) 11 U/L (5-34); Albumin 3.6 g/dL (3.5-5.0); Alkaline Phosphatase 70 U/L (40-150); Anion Gap 13 mmol/L (10-20); BUN (Urea Nitrogen) 12 mg/dL (7.0-18.7); Bilirubin, Total 0.3 mg/dL (0.2-1.2); Calc. Creatinine Clearance 0 mL/min (70-130); Carbon Dioxide 24 mmol/L (22-29); Chloride 108 mmol/L (98-107); Estimated GFR-MDRD 75; Globulin 3.9 g/dL (2.4-3.5); Glucose 97 mg/dL (70-105); Lipase 34 U/L (8-78); Potassium 3.7 mmol/L (3.5-5.1); Protein, Total 7.5 g/dL (6.0-8.3); Sodium 141 mmol/L (136-145)
[2017-10-31 14:25] LABS: PTT 26.1 SEC (22.9-36.1); Prothrombin Time 13.3 SEC (12.0-14.7)
[2017-10-31] MEDS ORDERED: Ketorolac Tromethamine 30 MG/ML VIAL ONE (15:41)
--- NOTE | 2017-10-31 16:45 | PDOC.FPRHP ---
- History of Present Illness Chief Complaint: abdominal pain, nausea History of Present Illness: Resident: Roel Keene MD PCP: Yajaira Gee MD Attending: Jitendra Cooper MD HPI: Candis Chaparro is a 47 year old female with a PMH of Rheumatoid Arthritis- biologics recently stopped due to anemia, asthma, and HTN who presented to the ED due to acute onset of abdominal pain starting the morning. Patient is not able to localize the pain, just says it is located all over the middle and left side of her abdomen. The pain is characterized as sharp pain that comes and goes, it has been constant since this morning and is associated with nausea and diarrhea. Patient denies seeing any gross red blood or dark stools but does state she saw bright red blood on the toilet paper last week. Patient states that she has had diarrhea since last week. She denies any recent travel or exposures. She denies any fever, chills, chest pain, dyspnea. States that she has been seeing a rheaumatologist in [place] and was getting IV biologics for RA (unknown med) and it was stopped recently due to anemia. 3 months ago she had a normal MCV and now she has a macrocytic anemia. She FOBT positive in the ED. ED Course: In the ED, she received 1 L NS, toradol, bentyl and zofran - Allergies/Adverse Reactions Allergies Allergy/AdvReac Type Severity Reaction Status Date / Time codeine [Codeine] Allergy Verified 04/20/17 17:04 - Home Medications Medication Instructions Recorded Confirmed Type Albuterol Sulfate [Albuterol 2 puff NEB Q4HR PRN #0 vial 10/20/12 10/31/17 Rx Sulfate Neb] Budesonide-Formoterol [Symbicort 1 puff INH BID #0 aer 10/20/12 10/31/17 Rx 160-4.5] predniSONE 20 mg PO QAM-WM 04/06/17 10/31/17 History Aspirin/Acetaminophen/Caffeine 1 tablet PO DAILY PRN 04/20/17 10/31/17 History [Excedrin Migraine Geltab] HYDROcodone Bit/APAP 5/325 [[place]] 1 - 2 tab PO Q4HR PRN 04/20/17 10/31/17 History Pantoprazole [Protonix] 40 mg PO DAILY 04/20/17 10/31/17 History Amlodipine [Norvasc] 5 mg PO DAILY #30 tab 04/23/17 10/31/17 Rx Gabapentin [Neurontin] 300 mg PO TID #180 cap 04/23/17 10/31/17 Rx Ibuprofen [Motrin] 800 mg PO Q8HR #30 tab 04/23/17 10/31/17 Rx Melatonin 3 mg PO HS PRN #30 tab 04/23/17 10/31/17 Rx Acetaminophen [Tylenol Regular 650 mg PO Q6HR PRN 10/31/17 10/31/17 History Strength] Apixaban [Eliquis] 2.5 mg PO BID 10/31/17 10/31/17 History diphenhydrAMINE [Benadryl] 1 - 2 tab PO Q4HR PRN 10/31/17 10/31/17 History traMADol HCl [Tramadol HCl] 50 mg PO Q4HR PRN 10/31/17 10/31/17 History - History PMHx: hx of DVT, Rheumatoid Arthritis, Asthma, HTN PSHx: hysterectomy with BTL FHx: noncontributory Social: occasional alcoholic drink, denies tobacco or drug use - Review of Systems General: reports: weight/appetite/sleep changes. denies: fever/chills, night sweats, fatigue Eyes: denies: eye pain, vision changes ENT: denies: nasal congestion, rhinorrhea Respiratory: denies: cough, congestion, shortness of breath, exercise intolerance Cardiovascular: denies: chest pain, palpitation, edema, paroxysmal nocturnal dyspnea, orthopnea Gastrointestinal: reports: nausea, diarrhea, abdominal pain, GI bleeding. denies: vomiting, constipation Genitourinary: denies: incontinence, dysuria, polyuria, discharge Skin: denies: rashes, lesions, jaundice, itching Musculoskeletal: reports: pain, tenderness, stiffness, arthritis/arthralgias. denies: swelling Neurological: denies: numbness, syncope, seizure, weakness Psychological: denies: anxiety, depression - Vital signs BP: 154/95 HR: 88 RR: 17 Tmax: 99.1 Pox: 99% on RA Wt: 90 kg - Physical Exam Constitutional: NAD, awake, alert and oriented, well developed HEENT: normocephalic and atraumatic, PERRLA, EOMI, conjunctiva clear, no scleral icterus, grossly normal vision, TM's clear and intact, grossly normal hearing, normal nasal mucosa, MMM, oropharynx clear Neck: supple, FROM, trachea midline, no LAD Chest: no-tender to palpation, no lesions Heart: RRR, normal S1/S2, no murmurs/rubs/gallops, pulses present Lungs: CTAB, no respiratory distress, good air movement, no rales/rhonchi, no wheezing Abdomen: soft, non-tender, bowel sounds present, no masses/distention Musculoskeletal: normal structure, normal tone, ROM grossly normal Neurological: no focal deficit, CN II-XII intact, normal sensation Skin: no rash/lesions, good turgor, capillary refill <2 seconds Heme/Lymphatic: no unusual bruising or bleeding, no purpura, no petechia Psychiatric: normal mood and affect, good judgment and insight, intact recent and remote memory FMR H&P: Results - Labs Result Diagrams: 10/31/17 13:48 10/31/17 13:48 Lab results: WBC 5.1 thou/uL (4.8-10.8) 10/31/17 13:48 Hgb 9.9 g/dL (12.0-16.0) L 10/31/17 13:48 Hct 29.2 % (36.0-47.0) L 10/31/17 13:48 MCV 116.0 fL (78.0-98.0) H 10/31/17 13:48 Plt Count 53 thou/uL (130-400) L 10/31/17 13:48 Neutrophils % 48.8 % (42.0-75.0) 10/31/17 13:48 Sodium 141 mmol/L (136-145) 10/31/17 13:48 Potassium 3.7 mmol/L (3.5-5.1) 10/31/17 13:48 Chloride 108 mmol/L (98-107) H 10/31/17 13:48 Carbon Dioxide 24 mmol/L (22-29) 10/31/17 13:48 BUN 12 mg/dL (7.0-18.7) 10/31/17 13:48 Creatinine 0.97 mg/dL (0.6-1.1) 10/31/17 13:48 Glucose 97 mg/dL (70-105) 10/31/17 13:48 Calcium 9.0 mg/dL (7.8-10.44) 10/31/17 13:48 Total Bilirubin 0.3 mg/dL (0.2-1.2) 10/31/17 13:48 AST 11 U/L (5-34) 10/31/17 13:48 ALT 11 U/L (8-55) 10/31/17 13:48 Alkaline Phosphatase 70 U/L (40-150) 10/31/17 13:48 Serum Total Protein 7.5 g/dL (6.0-8.3) 10/31/17 13:48 Albumin 3.6 g/dL (3.5-5.0) 10/31/17 13:48 Lipase 34 U/L (8-78) 10/31/17 13:48 FMR H&P: A/P - Problem List (1) Campylobacter enteritis Current Visit: Yes Status: Acute Code(s): A04.5 - CAMPYLOBACTER ENTERITIS (2) Asthma Current Visit: No Status: Chronic Code(s): J45.909 - UNSPECIFIED ASTHMA, UNCOMPLICATED Qualifiers: Asthma severity: mild Asthma persistence: intermittent Asthma complication type: uncomplicated Qualified Code(s): J45.20 - Mild intermittent asthma, uncomplicated (3) Rheumatoid arthritis Current Visit: No Status: Chronic Code(s): M06.9 - RHEUMATOID ARTHRITIS, UNSPECIFIED Qualifiers: Rheumatoid arthritis location: multiple sites Rheumatoid factor presence: unspecified presence Qualified Code(s): M06.9 - Rheumatoid arthritis, unspecified - Plan 1) Campylobacter Enteritis: - 1-2 wk hx of diarrhea, minimal GI bleeding, acute onset abdominal pain day of admission - Positive Campylobacter Ag in ED - Start IV Azithromycin - IVFs, LR @ 140 ml/hr - Hold Eliquis with positive FOBT - Probiotic and pepcid - Pain control 2) Macrocytic Anemia - 3 months ago, pt had a normal hemoglobin and normal mcv - Hg today is 9.9 and MCV is elevated - Patient states that she was taken off IV meds for her RA due to anemia recently - check RBC folate and B12 - continue to monitor - CBC in AM 3) Asthma - home meds 4) RA - will med rec from clinic records - start home maintenance medicines CODE STATUS: FULL CODE Disposition/LOS: Place on Obs/Medical, anticipate discharge home after hospital admission FMR H&P: Upper Level - Plan Date/Time: 10/31/17 [id number] I, [], have evaluated this patient and agree with findings/plan as outlined by internal communications specialist resident. Pertinent changes/additions are listed here. Attending Addendum - Attending Addendum Date/Time: 10/31/17 [id number] I personally evaluated the patient and discussed the management with Dr. Keene I agree with the History, Examination, Assessment and Plan documented above with any addition or exceptions noted below.Patient poor historian majority of information from review past medical records not sure if patient is continued on steroids for RA. Eliquis for hx DVT rec 6 month check initiation date and hold with GI bleed. If campylobacter enteritis non responsive to zithromycin consider IBD and further evaluation. Additional history of ? untreated syphilis.
[2017-10-31] MEDS ORDERED: Sodium Chloride 0.9% 1,000 ML IV SCH (17:22)
[2017-10-31] MEDS: Lactated Ringer's 1,000 ML IV SCH (18:00)
[2017-10-31] MEDS ORDERED: Acetaminophen 325 MG TAB PO PRN ×2 (18:10→18:16)
[2017-10-31] MEDS ORDERED: Melatonin 3 MG TAB PO PRN (18:12)
[2017-10-31] MEDS ORDERED: Ondansetron HCl/PF 4 MG/2 ML Vial IVP PRN ×2 (18:16→19:50)
[2017-10-31] MEDS ORDERED: Pantoprazole 40 MG VIAL IVP SCH (18:16)
[2017-10-31 18:17] VITALS: BMI 48.0
[2017-10-31] MEDS ORDERED: PROVENTIL INHALER 6.7 G (200 INHALATIONS) INH PRN (18:30)
[2017-10-31] MEDS: Mometasone/Formoterol 120 PUFF INHALER INH SCH (19:37)
[2017-10-31] MEDS: HYDROcodone/Acetaminophen 5/325 mg Tablet PO PRN (19:49)
[2017-10-31] MEDS ORDERED: Ondansetron ODT 4 MG TAB SL PRN (19:50)
[2017-10-31] MEDS ORDERED: Azithromycin 500 MG in Sodium Chloride 0.9% 250 ML 250 ML IVPB SCH (20:00)
[2017-10-31] MEDS: Famotidine 20 MG TAB PO SCH (20:39)
[2017-10-31] MEDS: Gabapentin 300 MG CAP PO SCH (20:39)
[2017-11-01] MEDS: Lactated Ringer's 1,000 ML IV SCH ×3 (01:25→16:00)
[2017-11-01] MEDS: HYDROcodone/Acetaminophen 5/325 mg Tablet PO PRN (05:29)
[2017-11-01 05:40] LABS: Anion Gap 9 mmol/L (10-20); BUN (Urea Nitrogen) 9 mg/dL (7.0-18.7); Calc. Creatinine Clearance 205 mL/min (70-130); Carbon Dioxide 24 mmol/L (22-29); Chloride 110 mmol/L (98-107); Estimated GFR-MDRD Greater than 90; Glucose 84 mg/dL (70-105); Potassium 3.4 mmol/L (3.5-5.1); Sodium 140 mmol/L (136-145)
[2017-11-01 05:57] LABS: Band 15 % (5-11); Hemoglobin 8.8 g/dL (12.0-16.0); Lymphocytes 60 % (21-51); MDiff Complete? YES; Mean Corpuscular HGB CONC 33.9 g/dL (32.0-36.0); Mean Platelet Volume 8.4 fL (7.4-10.4); Monocytes 3 % (0-10); Neutrophil 22 % (42-75); PLT Morphology Comment Appears Decreased; Platelet Count 41 thou/uL (130-400); RBC Distribution Width 15.8 % (11.5-14.5); Red Blood Cell (RBC) Count 2.19 mill/uL (4.20-5.40); White Blood Cell (WBC) Count 3.7 thou/uL (4.8-10.8)
[2017-11-01] MEDS ORDERED: Potassium Chloride 20 MEQ TAB PO SCH (06:30)
--- NOTE | 2017-11-01 06:35 | PDOC.FM ---
- Subjective Subjective: Candis Chaparro seen at bedside this morning. She is doing much better than she was at admission. Her abdominal pain has improved although it is still present. There were no acute events overnight. Informed PCP of patient's admission yesterday and she informed me that patient was positive for syphilis and she was unsure if patient had made it to the [facility] for treatment. Patient said she did go and that she is getting weekly shots for three weeks, next week, she gets shot three of three. - Objective MAR Reviewed: Yes Vital Signs & Weight: Vital Signs (12 hours) Temp Pulse Resp BP BP Pulse Ox 11/01/17 00:05 96.5 F L 80 16 115/75 96 10/31/17 20:00 96.8 F L 83 16 122/85 96 Weight Weight 134.972 kg I&O: 10/30/17 10/31/17 11/01/17 06:59 06:59 06:59 Intake Total 2100 Output Total 1 Balance 2098 Result Diagrams: 11/01/17 05:17 11/01/17 05:17 <Roel Keene - Last Filed: 11/01/17 07:51> - Objective Vital Signs & Weight: Vital Signs (12 hours) Temp Pulse Resp BP BP Pulse Ox 11/01/17 09:31 79 106/68 11/01/17 08:25 80 16 96 11/01/17 08:00 98.4 F 79 18 106/68 106/68 98 11/01/17 00:05 96.5 F L 80 16 115/75 96 Weight Weight 134.972 kg I&O: 10/31/17 11/01/17 11/02/17 06:59 06:59 06:59 Intake Total 2100 460 Output Total 1 Balance 2098 460 Result Diagrams: 11/01/17 05:17 11/01/17 05:17 <Jitendra Cooper - Last Filed: 11/01/17 11:05> Phys Exam - Physical Examination Constitutional: NAD HEENT: moist MMs, sclera anicteric Neck: no JVD, supple, full ROM Respiratory: no wheezing, no rales, no rhonchi, clear to auscultation bilateral Cardiovascular: RRR, no significant murmur Gastrointestinal: soft, no distention, positive bowel sounds TTP diffusely Musculoskeletal: no edema, pulses present Neurological: non-focal, normal sensation, moves all 4 limbs Psychiatric: normal affect, A&O x 3 Skin: no rash, normal turgor <Roel Keene - Last Filed: 11/01/17 07:51> Dx/Plan (1) Campylobacter enteritis Code(s): A04.5 - CAMPYLOBACTER ENTERITIS Status: Acute (2) Asthma Code(s): J45.909 - UNSPECIFIED ASTHMA, UNCOMPLICATED Status: Chronic QualifierTitle: Asthma severity: mild Asthma persistence: intermittent Asthma complication type: uncomplicated Qualified Code(s): J45.20 - Mild intermittent asthma, uncomplicated (3) Rheumatoid arthritis Code(s): M06.9 - RHEUMATOID ARTHRITIS, UNSPECIFIED Status: Chronic QualifierTitle: Rheumatoid arthritis location: multiple sites Rheumatoid factor presence: unspecified presence Qualified Code(s): M06.9 - Rheumatoid arthritis, unspecified (4) Pancytopenia Code(s): D61.818 - OTHER PANCYTOPENIA Status: Acute - Plan Plan: 1) Campylobacter Enteritis: - 1-2 wk hx of diarrhea, minimal GI bleeding, acute onset abdominal pain day of admission - Positive Campylobacter Ag in ED - Continue IV Azithromycin, started on 10/31 - IVFs, LR @ 140 ml/hr - Hold Eliquis with positive FOBT - Probiotic and pepcid - Pain control 2) Macrocytic Anemia - 3 months ago, pt had a normal hemoglobin and normal mcv - Hg 9.9 on admission, today is 8.8. decrease likely dilutional - Patient states that she was taken off IV meds for her RA due to anemia recently - check RBC folate and B12 - continue to monitor - CBC in AM 3) Asthma - home meds 4) RA - will med rec from clinic records - start home maintenance medicines 5) Pancytopenia - Poss 2/2 biologics given for RA - Meds have apparently been discontinued by template inspector - continue to monitor <Roel Keene - Last Filed: 11/01/17 07:51> (1) Campylobacter enteritis Code(s): A04.5 - CAMPYLOBACTER ENTERITIS Status: Acute (2) Asthma Code(s): J45.909 - UNSPECIFIED ASTHMA, UNCOMPLICATED Status: Chronic Qualifiers: Asthma severity: mild Asthma persistence: intermittent Asthma complication type: uncomplicated Qualified Code(s): J45.20 - Mild intermittent asthma, uncomplicated (3) Rheumatoid arthritis Code(s): M06.9 - RHEUMATOID ARTHRITIS, UNSPECIFIED Status: Chronic Qualifiers: Rheumatoid arthritis location: multiple sites Rheumatoid factor presence: unspecified presence Qualified Code(s): M06.9 - Rheumatoid arthritis, unspecified <Jitendra Cooper - Last Filed: 11/01/17 11:05> Attending Addendum - Attending Addendum Date/Time: 11/01/17 1103 I personally evaluated the patient and discussed the management with Dr. Keene I agree with the History, Examination, Assessment and Plan documented above with any addition or exceptions noted below. Patient is improved and a trial of PO meds would be reasonable as patient tolerating PO well with no N/V <Jitendra Cooper - Last Filed: 11/01/17 11:05>
[2017-11-01] MEDS ORDERED: predniSONE 20 MG TAB PO SCH (08:00)
[2017-11-01] MEDS: Mometasone/Formoterol 120 PUFF INHALER INH SCH (08:25)
[2017-11-01] MEDS ORDERED: Lactinex Tablet PO SCH (09:00)
[2017-11-01] MEDS ORDERED: Pantoprazole 40 MG VIAL IVP SCH (09:00)
[2017-11-01] MEDS ORDERED: Amlodipine 5 MG TAB PO SCH (09:00)
[2017-11-01] MEDS: Gabapentin 300 MG CAP PO SCH ×2 (09:30→15:32)
[2017-11-01] MEDS: Famotidine 20 MG TAB PO SCH (09:30)
[2017-11-01 09:33] VITALS: BP 106/68
[2017-11-01 09:43] VITALS: TEMP 98.4
[2017-11-01] MEDS: Dicyclomine 10 MG CAP PO SCH ×2 (13:24→17:04)
--- NOTE | 2017-11-02 01:52 | DIS-2 ---
DATE OF ADMISSION: 10/31/2017 DATE OF DISCHARGE: 11/01/2017 RESIDENT: Roel Keene MD ADMITTING ATTENDING: Dr. Jitendra Cooper. DISCHARGE ATTENDING: Dr. Jitendra Cooper. CONSULTATIONS: None. PROCEDURES: 1. Rapid parasite screen from 10/31/2017, result, negative for Giardia or cryptosporidium antigens. 2. Stool lactoferrin from 10/31/2017, result, presence of elevated fecal lactoferrin. 3. Stool culture from 10/31/2017, no E. coli 0157 isolated, many normal enteric lucy present, preliminary read. 4. Campylobacter antigen and Shiga toxin test from 10/31/2017, result, positive for Campylobacter antigen, negative for E. coli, Shiga toxin 1 and 2. 5. Stool occult blood from 10/31/2017, positive for fecal occult blood. 6. Clostridium difficile antigen and toxin from 10/31/2017: toxigenic C. diff not detected by PCR, C dif antigen positive. PRIMARY DIAGNOSIS: Campylobacter enterocolitis. SECONDARY DIAGNOSES: 1. Macrocytic anemia. 2. Syphilis. 3. Hypertension. 4. Rheumatoid arthritis. 5. Asthma. 6. History of deep venous thrombosis. DISCHARGE MEDICATIONS: Resume home medications includin. Albuterol sulfate 2 puffs nebs q.4 hours p.r.n. 2. Symbicort 160/4.5 1 puff INH b.i.d. 3. Prednisone 20 mg p.o. q.a.m. with meals. 4. Excedrin Migraine 1 tablet p.o. daily p.r.n. 5. Pantoprazole 40 mg p.o. daily. 6. [place] 5/325 mg 1-2 tabs p.o. q.4 hours p.r.n. 7. Amlodipine 5 mg p.o. daily. 8. Gabapentin 300 mg p.o. t.i.d. 9. Motrin 800 mg p.o. q.8 hours. 10. Melatonin 3 mg p.o. at bedtime p.r.n. 11. Benadryl 25 mg 1-2 tabs p.o. q.4 hours p.r.n. 12. Tramadol hydrochloride 50 mg p.o. q.4 hours p.r.n. 13. Eliquis 2.5 mg p.o. b.i.d. 14. Acetaminophen 650 mg p.o. q.6 hours p.r.n. NEW HOME MEDICATIONS: Include: 1. Azithromycin 500 mg p.o. daily for 5 days. 2. Dicyclomine 10 mg p.o. q.i.d. 3. Famotidine 20 mg p.o. b.i.d. 4. Lactobacillus 1 tab p.o. daily. HISTORY OF PRESENT ILLNESS AND HOSPITAL COURSE: Candis Chaparro is a 47-year-old female with a past medical history of rheumatoid arthritis, asthma, and hypertension who presented to the ED with acute onset of abdominal pain starting this morning. The patient is not able to localize pain just says it is located all over the middle and left side of her abdomen. Pain is characterized as sharp pain that comes and goes. It has been constant since this morning. It is associated with nausea and diarrhea. The patient denies seeing any gross red blood or dark stools and she states that she saw bright red blood on toilet paper last week. She states that diarrhea started last week. She denies any recent travel or exposure. She denies any fever, chills, chest pain, or dyspnea. States that she has been seeing a petroleum refining firer in [place] and was getting IV biologic rheumatoid arthritis (unknown [facility]) and it was stopped recently due to anemia. Three months ago, she had a normal MCV and now she has a macrocytic anemia. She has FOBT positive in the ED. In the ED, she received 1-liter normal saline, Toradol, Bentyl and Zofran. In the ED, she was also positive for Campylobacter. Initial labs were white blood cell count 5.1, hemoglobin 9.9, hematocrit 29.2, platelets 53. Sodium 141, potassium 3.7, chloride 108, bicarbonate 24, BUN 12, creatinine 0.97, glucose 97. The patient was admitted for Campylobacter enteritis. She was started on IV azithromycin and lactated Ringer's at 140 mL an hour. She was also started on probiotics, Pepcid, Protonix, and pain control. Patient's abdominal pain improved over the first night of her admission. The patient was transitioned to p.o. azithromycin and patient tolerating her diet by mid day. The patient was cleared for discharge on 11/01/2017 with instructions to continue taking azithromycin. She was provided with pain control and she was instructed to follow up with her primary care provider within the next week. The patient understood the instructions and agreed to plan. The patient's pancytopenia was likely secondary to recent use of biologics for treatment of rheumatoid arthritis. The patient is being followed by Rheumatology at [facility] in [place]. She has stopped the IV biologics because of the anemia. The patient instructed to follow up with that provider as well. DISPOSITION: Stable. The patient should do well. She continues taking her antibiotics and following up with her primary care provider. DISCHARGE INSTRUCTIONS: 1. Location: Home. 2. Diet: Heart healthy. 3. Activity: As tolerated. 4. Followup: Follow up with primary care provider and petroleum refining firer at [facility] in [place]. MK
[2017-11-02] MEDS ORDERED: Azithromycin 250 MG TAB PO SCH (09:00)
[2017-11-02 17:11] LABS: Folate,Hemolysate 250.1 ng/mL (Not Estab.); Hematocrit 23.8 % (34.0-46.6); RBC Folate Test Component 1051 ng/mL (>498)
== END 2017-11-01 17:42 | disposition home or self-care (01) ==
LOC: ERS 12:57 → ONC 16:48
PROVIDERS: ADMIT Family Medicine; ATTEND Family Medicine
DX: A04.5 Campylobacter enteritis (principal); J45.909 Unspecified asthma, uncomplicated; M06.9 Rheumatoid arthritis, unspecified; D61.818 Other pancytopenia; D53.9 Nutritional anemia, unspecified; A53.9 Syphilis, unspecified; I10 Essential (primary) hypertension; Z79.899 Other long term (current) drug therapy; Z88.5 Allergy status to narcotic agent; Z79.82 Long term (current) use of aspirin; Z86.718 Personal history of other venous thrombosis and embolism
CPT/HCPCS: 36415; 80048; 80053; 82274; 82607; 82747; 83630; 83690; 85025; 85610; 85730; 87045; 87046; 87324; 87328; 87329; 87449; 87493; 87899; 93005; 93010; 96361; 96365; 96366; 96372; 96374; 96375; C9113; G0378; J0456; J1885; J7050; J7506; Q0162

== ENCOUNTER 2017-12-07 00:56 | Emergency (ER) | payer OTHER ==
[2017-12-07 01:30] LABS: Hemoglobin 10.7 g/dL (12.0-16.0); Mean Corpuscular HGB CONC 34.1 g/dL (32.0-36.0); Mean Corpuscular Hemoglobin 40.3 pg (27.0-31.0); RBC Distribution Width 13.7 % (11.5-14.5); Red Blood Cell (RBC) Count 2.66 mill/uL (4.20-5.40); White Blood Cell (WBC) Count 5.2 thou/uL (4.8-10.8)
[2017-12-07 01:49] LABS: #Basophils 0.1 thou/uL (0.0-0.2); #Lymphocytes 2.2 thou/uL (1.20-3.40); #Monocytes 0.3 thou/uL (0.11-0.59); #Neutrophils 2.5 thou/uL (1.40-6.50); %Basophils 1.3 % (0.0-1.0); %Eosinophils 0.5 % (0.0-10.0); %Lymphocytes 42.6 % (21.0-51.0); %Monocytes 6.5 % (0.0-10.0); %Neutrophils 49.1 % (42.0-75.0); Mean Platelet Volume 8.4 fL (7.4-10.4); PLT Morphology Comment Appears Decreased; Platelet Count 82 thou/uL (130-400)
[2017-12-07 01:54] LABS: Anion Gap 13 mmol/L (10-20); BUN (Urea Nitrogen) 7 mg/dL (7.0-18.7); CRP (Inflammatory) 3.09 mg/dL (= or < 0.5); Calc. Creatinine Clearance 0 mL/min (70-130); Calcium 8.8 mg/dL (7.8-10.44); Carbon Dioxide 22 mmol/L (22-29); Chloride 106 mmol/L (98-107); Estimated GFR-MDRD Greater than 90; Glucose 84 mg/dL (70-105); Potassium 3.3 mmol/L (3.5-5.1); Sodium 138 mmol/L (136-145)
[2017-12-07] MEDS ORDERED: methylPREDNISolone Sod Succ/PF 125 MG/2 ML VIAL ONE ×2 (02:01→02:36)
[2017-12-07] MEDS ORDERED: Ketorolac Tromethamine 30 MG/ML VIAL ONE (02:01)
[2017-12-07] MEDS ORDERED: Ketorolac Tromethamine 60 MG/2 ML VIAL ONE (02:33)
== END 2017-12-07 03:40 | disposition home or self-care (01) ==
LOC: ERS 00:56
DX: M06.9 Rheumatoid arthritis, unspecified (principal); J45.909 Unspecified asthma, uncomplicated; I10 Essential (primary) hypertension; F41.9 Anxiety disorder, unspecified; Z79.899 Other long term (current) drug therapy
CPT/HCPCS: 36415; 80048; 85025; 85652; 86140; 96372; J1885; J2930

== ENCOUNTER 2017-12-26 22:38 | Emergency (ER) | payer OTHER ==
[2017-12-26 23:48] LABS: Bilirubin Negative (Negative); Blood, Urine Negative (Negative); Clarity CLEAR (Clear); Glucose, Urine (Dipstick) Negative (Negative); Leukocyte Negative (Negative); Nitrite Negative (Negative); Protein, Urine (Dipstick) Negative (Neg-Trace); Specific Gravity, Urine 1.019 (1.002-1.036); Urobilinogen 0.2 mg/dL (0.2-1.0); pH, Urine 5.5 (5.0-9.0)
[2017-12-27] MEDS ORDERED: Ketorolac Tromethamine 60 MG/2 ML VIAL ONE (00:30)
[2017-12-27] MEDS ORDERED: methylPREDNISolone Sod Succ/PF 125 MG/2 ML VIAL ONE (00:30)
[2017-12-27 00:46] LABS: #Basophils 0.1 thou/uL (0.0-0.2); #Lymphocytes 2.2 thou/uL (1.20-3.40); #Monocytes 0.5 thou/uL (0.11-0.59); %Basophils 1.3 % (0.0-1.0); %Lymphocytes 38.9 % (21.0-51.0); %Monocytes 8.1 % (0.0-10.0); %Neutrophils 51.7 % (42.0-75.0); Hemoglobin 11.4 g/dL (12.0-16.0); Mean Corpuscular HGB CONC 34.3 g/dL (32.0-36.0); Mean Corpuscular Hemoglobin 39.4 pg (27.0-31.0); Mean Platelet Volume 8.5 fL (7.4-10.4); Platelet Count 92 thou/uL (130-400); RBC Distribution Width 13.2 % (11.5-14.5); Red Blood Cell (RBC) Count 2.88 mill/uL (4.20-5.40); White Blood Cell (WBC) Count 5.7 thou/uL (4.8-10.8)
[2017-12-27 01:05] LABS: ALT (SGPT) 33 U/L (8-55); AST (SGOT) 18 U/L (5-34); Albumin 3.8 g/dL (3.5-5.0); Alkaline Phosphatase 84 U/L (40-150); Anion Gap 12 mmol/L (10-20); BUN (Urea Nitrogen) 15 mg/dL (7.0-18.7); Bilirubin, Total 0.2 mg/dL (0.2-1.2); Calc. Creatinine Clearance 0 mL/min (70-130); Calcium 9.4 mg/dL (7.8-10.44); Carbon Dioxide 27 mmol/L (22-29); Chloride 103 mmol/L (98-107); Estimated GFR-MDRD 81; Globulin 3.8 g/dL (2.4-3.5); Glucose 92 mg/dL (70-105); Potassium 4.1 mmol/L (3.5-5.1); Protein, Total 7.6 g/dL (6.0-8.3); Sodium 138 mmol/L (136-145)
[2017-12-27 02:43] LABS: Pregnancy Test - Urine (BHCG) Negative (Negative); Pregu Control Background? CLEAR/WHITE (CLR/WHITE); Pregu Control Bar Appear? YES (CONTROL BAR); Specific Gravity 1.019 (1.002-1.036)
[2017-12-28 00:02] LABS: Chlamydia by PCR Not Detected (NotDetected); GC by PCR Not Detected (NotDetected)
--- NOTE | 2017-12-30 14:59 | EKG ---
Test Reason : L SHOULDER PAIN Blood Pressure : / mmHG Vent. Rate : 078 BPM Atrial Rate : 078 BPM P-R Int : 152 ms QRS Dur : 076 ms QT Int : 394 ms P-R-T Axes : 041 -02 000 degrees QTc Int : 449 ms Normal sinus rhythm Minimal voltage criteria for LVH, may be normal variant Borderline ECG Confirmed by OFE AGRAWAL DO ([id number]), society editor ADAM JASSO ([id number] on 12/30/2017 2:59:01 PM Referred By: Confirmed By:OFE AGRAWAL DO
== END 2017-12-27 02:00 | disposition home or self-care (01) ==
LOC: ERS 22:38
DX: G89.29 Other chronic pain (principal); M25.512 Pain in left shoulder; R32 Unspecified urinary incontinence; I10 Essential (primary) hypertension; M06.9 Rheumatoid arthritis, unspecified; Z79.899 Other long term (current) drug therapy
CPT/HCPCS: 36415; 80053; 81003; 81025; 85025; 87480; 87491; 87510; 87591; 87660; 93005; 96372; J1885; J2930

== ENCOUNTER 2018-01-19 17:18 | Emergency (ER) | payer OTHER ==
[2018-01-19] MEDS ORDERED: Ketorolac Tromethamine 30 MG/ML VIAL ONE (19:10)
[2018-01-19] MEDS ORDERED: Ondansetron ODT 4 MG TAB ONE (19:10)
[2018-01-19] MEDS ORDERED: predniSONE 20 MG TAB ONE (19:13)
== END 2018-01-19 19:37 | disposition home or self-care (01) ==
LOC: ERS 17:18
DX: M06.9 Rheumatoid arthritis, unspecified (principal); J45.909 Unspecified asthma, uncomplicated; I10 Essential (primary) hypertension; F41.9 Anxiety disorder, unspecified; Z79.899 Other long term (current) drug therapy
CPT/HCPCS: 96372; J1885; J7506; Q0162

== ENCOUNTER 2018-01-27 02:46 | Emergency (ER) | payer OTHER ==
[2018-01-27] MEDS ORDERED: Ketorolac Tromethamine 30 MG/ML VIAL ONE (03:38)
[2018-01-27] MEDS ORDERED: cloNIDine 0.1 MG TAB ONE (03:58)
--- NOTE | 2018-01-27 08:00 | RAD ---
3 VIEWS LEFT WRIST: Date: 01/27/18 HISTORY: Left wrist pain. History of rheumatoid arthritis. FINDINGS: Three views of the left wrist show severe degenerative change in the radiocarpal joint with joint spa ce narrowing and osteophyte formation. There is slight widening of the scapholunate interval. There i s fragmentation of the scaphoid. There is remodeling of the distal ulna with degenerative change at t he distal radial ulnar joint. IMPRESSION: Severe left wrist degenerative change without acute osseous abnormality. POS: CET
== END 2018-01-27 04:29 | disposition home or self-care (01) ==
LOC: ERS 02:46
DX: M06.9 Rheumatoid arthritis, unspecified (principal); J45.909 Unspecified asthma, uncomplicated; I10 Essential (primary) hypertension; F41.9 Anxiety disorder, unspecified; Z79.899 Other long term (current) drug therapy
CPT/HCPCS: 96372; J1885; J7620

== ENCOUNTER 2018-03-30 12:15 | Emergency (ER) | payer OTHER ==
[2018-03-30] MEDS ORDERED: predniSONE 20 MG TAB ONE ×2 (12:48→12:55)
[2018-03-30] MEDS ORDERED: Ketorolac Tromethamine 60 MG/2 ML VIAL ONE (12:48)
== END 2018-03-30 13:22 | disposition home or self-care (01) ==
LOC: ERS 12:15
DX: M79.10 Myalgia, unspecified site (principal); Z76.0 Encounter for issue of repeat prescription; M06.9 Rheumatoid arthritis, unspecified; J45.909 Unspecified asthma, uncomplicated; I10 Essential (primary) hypertension; F41.9 Anxiety disorder, unspecified; Z79.899 Other long term (current) drug therapy
CPT/HCPCS: 96372; J1885; J7506

== ENCOUNTER 2018-04-22 06:18 | Emergency (ER) | payer OTHER ==
[2018-04-22] MEDS ORDERED: predniSONE 20 MG TAB ONE (06:34)
[2018-04-22] MEDS ORDERED: Methocarbamol 1 GM/10 ML VIAL IM SCH (06:45)
== END 2018-04-22 08:15 | disposition home or self-care (01) ==
LOC: ERS 06:18
DX: S76.012A Strain of muscle, fascia and tendon of left hip, initial encounter (principal); F41.9 Anxiety disorder, unspecified; I10 Essential (primary) hypertension; M06.9 Rheumatoid arthritis, unspecified; J45.909 Unspecified asthma, uncomplicated; Z79.899 Other long term (current) drug therapy; X58.XXXA Exposure to other specified factors, initial encounter
CPT/HCPCS: 93970; 96372; J2800; J7506

== ENCOUNTER 2018-04-22 13:59 | Outpatient (CLI) | payer OTHER ==
--- NOTE | 2018-04-22 16:52 | ULT ---
BILATERAL LOWER EXTREMITY VENOUS DOPPLER ULTRASOUND: Date: 04/22/18 HISTORY: Elevated D-Dimer, left lower extremity pain. TECHNIQUE: Luu scale ultrasound with color flow and spectral Doppler imaging of the deep venous systems of the lower extremities was performed bilaterally. FINDINGS: There is good flow, compression, and augmentation noted in the common femoral, femoral, deep femoral, popliteal, posterior tibial, and greater saphenous veins on either side. IMPRESSION: No evidence of deep venous thrombosis in either lower extremity. POS: [facility]
== END 2018-04-22 14:00 | disposition home or self-care (01) ==
LOC: ULT 13:59
PROVIDERS: ATTEND Student in an Organized Health Care Education/Training Program
DX: M79.605 Pain in left leg (principal); R79.1 Abnormal coagulation profile; Z86.718 Personal history of other venous thrombosis and embolism
CPT/HCPCS: 93970

== ENCOUNTER 2018-04-28 05:02 | Emergency (ER) | payer OTHER ==
[2018-04-28] MEDS ORDERED: Albuterol Sulfate 2.5 mg/3 ml Neb ONE (06:25)
[2018-04-28] MEDS ORDERED: Ketorolac Tromethamine 30 MG/ML VIAL ONE (06:26)
[2018-04-28 07:05] LABS: ALT (SGPT) 16 U/L (8-55); AST (SGOT) 14 U/L (5-34); Albumin 3.5 g/dL (3.5-5.0); Alkaline Phosphatase 70 U/L (40-150); Anion Gap 12 mmol/L (10-20); BUN (Urea Nitrogen) 19 mg/dL (7.0-18.7); Bilirubin, Total 0.2 mg/dL (0.2-1.2); Calc. Creatinine Clearance 0 mL/min (70-130); Calcium 8.6 mg/dL (7.8-10.44); Carbon Dioxide 25 mmol/L (22-29); Chloride 109 mmol/L (98-107); Estimated GFR-MDRD 81; Globulin 3.9 g/dL (2.4-3.5); Glucose 98 mg/dL (70-105); Potassium 3.2 mmol/L (3.5-5.1); Protein, Total 7.4 g/dL (6.0-8.3); Sodium 143 mmol/L (136-145)
[2018-04-28 07:29] LABS: #Lymphocytes 1.2 thou/uL (1.20-3.40); #Monocytes 0.3 thou/uL (0.11-0.59); #Neutrophils 2.2 thou/uL (1.40-6.50); %Eosinophils 0.3 % (0.0-10.0); %Lymphocytes 32.1 % (21.0-51.0); %Monocytes 7.9 % (0.0-10.0); %Neutrophils 59.7 % (42.0-75.0); Band 11 % (5-11); Hemoglobin 9.5 g/dL (12.0-16.0); Lymphocytes 27 % (21-51); MDiff Complete? YES; Mean Corpuscular HGB CONC 33.3 g/dL (32.0-36.0); Mean Corpuscular Hemoglobin 37.8 pg (27.0-31.0); Mean Platelet Volume 8.9 fL (7.4-10.4); Neutrophil 61 % (42-75); Nucleated RBC 1 % (0); PLT Morphology Comment Appears Decreased; Platelet Count 58 thou/uL (130-400); Polychromasia SLIGHT = 2-3 cells (100X) (0-2/hpf); RBC Distribution Width 15.2 % (11.5-14.5); Reactive Lymphocytes 1 % (0-10); Red Blood Cell (RBC) Count 2.52 mill/uL (4.20-5.40); White Blood Cell (WBC) Count 3.7 thou/uL (4.8-10.8)
--- NOTE | 2018-04-28 08:21 | RAD ---
PORTABLE CHEST ONE VIEW: Date: 04-28-18 Time: 12:30 a.m. History: Cough. FINDINGS: The heart size is normal. The lungs are well expanded without focal areas of consolidation, pneumotho races or pleural effusions. IMPRESSION: No radiographic evidence of acute cardiopulmonary process. POS: OFF
== END 2018-04-28 09:24 | disposition home or self-care (01) ==
LOC: ERS 05:02
DX: J11.1 Influenza due to unidentified influenza virus with other respiratory manifestations (principal); J45.909 Unspecified asthma, uncomplicated; I10 Essential (primary) hypertension; F41.9 Anxiety disorder, unspecified; Z79.899 Other long term (current) drug therapy
CPT/HCPCS: 36415; 71045; 80053; 83605; 85025; 87040; 87804; 94640; 94644; 96360; 96361; 96374; J1885; J7611; J7620

== ENCOUNTER 2018-06-03 05:42 | Emergency (ER) | payer OTHER ==
[2018-06-03] MEDS ORDERED: Acetaminophen 325 MG TAB ONE (06:51)
[2018-06-03] MEDS ORDERED: Ketorolac Tromethamine 30 MG/ML VIAL ONE (06:51)
== END 2018-06-03 07:36 | disposition home or self-care (01) ==
LOC: ERS 05:42
DX: G89.29 Other chronic pain (principal); M25.50 Pain in unspecified joint; M06.9 Rheumatoid arthritis, unspecified; I10 Essential (primary) hypertension; F41.9 Anxiety disorder, unspecified; Z79.899 Other long term (current) drug therapy; Z79.51 Long term (current) use of inhaled steroids
CPT/HCPCS: 96372; J1885

== ENCOUNTER 2018-06-11 15:40 | Emergency (ER) | payer OTHER ==
[2018-06-11] MEDS ORDERED: Ketorolac Tromethamine 30 MG/ML VIAL ONE (18:07)
[2018-06-11] MEDS ORDERED: methylPREDNISolone Sod Succ/PF 125 MG/2 ML VIAL ONE (18:07)
[2018-06-11 18:19] LABS: #Lymphocytes 1.7 thou/uL (1.20-3.40); #Monocytes 0.3 thou/uL (0.11-0.59); %Basophils 0.7 % (0.0-1.0); %Eosinophils 0.2 % (0.0-10.0); %Lymphocytes 42.6 % (21.0-51.0); %Monocytes 6.3 % (0.0-10.0); %Neutrophils 50.3 % (42.0-75.0); Hemoglobin 10.1 g/dL (12.0-16.0); Mean Corpuscular HGB CONC 33.1 g/dL (32.0-36.0); Mean Corpuscular Hemoglobin 38.7 pg (27.0-31.0); Mean Platelet Volume 9.7 fL (7.4-10.4); Platelet Count 53 thou/uL (130-400); RBC Distribution Width 14.8 % (11.5-14.5); Red Blood Cell (RBC) Count 2.61 mill/uL (4.20-5.40); White Blood Cell (WBC) Count 3.9 thou/uL (4.8-10.8)
--- NOTE | 2018-06-11 18:29 | RAD ---
CHEST ONE VIEW: 06/11/18 HISTORY: Dyspnea. COMPARISON: Radiograph 04/28/18. FINDINGS: There is increased opacification of the left hemithorax relative to the right likely sequela of patie nt's breast shadow creating this artifact as well as rightward patient rotation. Given this limitatio n, lungs appear clear. No pneumothorax. No effusion. No acute osseous abnormality. IMPRESSION: Within the limits of this exam, no acute intrathoracic abnormality. POS: [facility]
[2018-06-11 18:35] LABS: ALT (SGPT) 29 U/L (8-55); AST (SGOT) 17 U/L (5-34); Albumin 3.5 g/dL (3.5-5.0); Alkaline Phosphatase 95 U/L (40-150); Anion Gap 11 mmol/L (10-20); BUN (Urea Nitrogen) 13 mg/dL (7.0-18.7); Bilirubin, Total 0.2 mg/dL (0.2-1.2); Calc. Creatinine Clearance 0 mL/min (70-130); Carbon Dioxide 26 mmol/L (22-29); Chloride 108 mmol/L (98-107); Estimated GFR-MDRD Greater than 90; Glucose 81 mg/dL (70-105); Potassium 3.6 mmol/L (3.5-5.1); Protein, Total 7.5 g/dL (6.0-8.3); Sodium 141 mmol/L (136-145)
== END 2018-06-11 19:21 | disposition home or self-care (01) ==
LOC: ERS 15:40
DX: M06.9 Rheumatoid arthritis, unspecified (principal); G89.29 Other chronic pain; M25.561 Pain in right knee; M25.562 Pain in left knee; J45.909 Unspecified asthma, uncomplicated; I10 Essential (primary) hypertension; F41.9 Anxiety disorder, unspecified; Z79.899 Other long term (current) drug therapy; Z79.51 Long term (current) use of inhaled steroids
CPT/HCPCS: 71045; 80053; 85025; 96374; 96375; J1885; J2930; J7620

== ENCOUNTER 2018-06-25 05:50 | Emergency (ER) | payer OTHER ==
[2018-06-25] MEDS ORDERED: Ketorolac Tromethamine 30 MG/ML VIAL ONE (06:15)
== END 2018-06-25 06:52 | disposition home or self-care (01) ==
LOC: ERS 05:50
DX: M19.032 Primary osteoarthritis, left wrist (principal); J45.909 Unspecified asthma, uncomplicated; I10 Essential (primary) hypertension; F41.9 Anxiety disorder, unspecified; Z79.51 Long term (current) use of inhaled steroids; Z79.899 Other long term (current) drug therapy
CPT/HCPCS: 96372; J1885

== ENCOUNTER 2018-07-05 10:22 | Emergency (ER) | payer OTHER ==
[2018-07-05] MEDS ORDERED: Loperamide HCl 2 MG CAP ONE (13:06)
[2018-07-05] MEDS ORDERED: Ondansetron ODT 4 MG TAB ONE (13:19)
== END 2018-07-05 13:20 | disposition home or self-care (01) ==
LOC: ERS 10:22
DX: R19.7 Diarrhea, unspecified (principal); I10 Essential (primary) hypertension; M06.9 Rheumatoid arthritis, unspecified; J45.909 Unspecified asthma, uncomplicated; F41.9 Anxiety disorder, unspecified
CPT/HCPCS: 99283; Q0162

== ENCOUNTER 2019-11-23 07:59 | Emergency (ER) | payer OTHER ==
[2019-11-23] MEDS ORDERED: Morphine 4 MG/ML VIAL ONE (09:42)
[2019-11-23] MEDS ORDERED: Ibuprofen 800 MG TAB ONE (09:42)
[2019-11-23] MEDS ORDERED: predniSONE 20 MG TAB ONE (09:42)
[2019-11-23] MEDS ORDERED: Morphine 2 MG/ML SYRINGE ONE (09:42)
== END 2019-11-23 10:35 | disposition home or self-care (01) ==
LOC: ERS 07:59
DX: M06.9 Rheumatoid arthritis, unspecified (principal); D64.9 Anemia, unspecified; I10 Essential (primary) hypertension; J45.909 Unspecified asthma, uncomplicated; F41.9 Anxiety disorder, unspecified
CPT/HCPCS: 96372; 99283; J2270; J7512

== ENCOUNTER 2019-12-26 10:18 | Emergency (ER) | payer OTHER ==
[2019-12-26] MEDS ORDERED: Mag-Al 1200 mg/1200 mg/30 ML UDCUP ONE (11:28)
[2019-12-26] MEDS ORDERED: Lidocaine Viscous Sol 2% 15 ml UD Cup ONE (11:28)
[2019-12-26] MEDS ORDERED: methylPREDNISolone Sod Succ/PF 125 MG/2 ML VIAL ONE (11:29)
[2019-12-26] MEDS ORDERED: Ketorolac Tromethamine 30 MG/ML VIAL ONE (11:29)
[2019-12-26] MEDS ORDERED: Ondansetron PF 4 MG/2 ML Vial ONE (11:29)
[2019-12-26 11:52] LABS: BHCG - Serum Negative (NEGATIVE); Pregs Control Bar Appear? YES (CONTROL BAR)
[2019-12-26 11:53] LABS: Pregs Control Background? CLEAR/WHITE (CLR/WHITE)
[2019-12-26 12:19] LABS: ALT (SGPT) 14 U/L (8-55); AST (SGOT) 13 U/L (5-34); Albumin 3.7 g/dL (3.5-5.0); Alkaline Phosphatase 89 U/L (40-110); Anion Gap 12 mmol/L (10-20); BUN (Urea Nitrogen) 15 mg/dL (7.0-18.7); Bilirubin, Total 0.2 mg/dL (0.2-1.2); Calc. Creatinine Clearance 0 mL/min (70-130); Calcium 9.3 mg/dL (7.8-10.44); Carbon Dioxide 25 mmol/L (22-29); Chloride 109 mmol/L (98-107); Estimated GFR-MDRD Greater than 90; Globulin 3.8 g/dL (2.4-3.5); Glucose 100 mg/dL (70-105); Lipase 17 U/L (8-78); Potassium 3.7 mmol/L (3.5-5.1); Protein, Total 7.5 g/dL (6.0-8.3); Sodium 142 mmol/L (136-145)
--- NOTE | 2019-12-26 12:30 | RAD ---
XR Abdomen 2 View/1 View Cxr HISTORY: Mid lower abdominal pain FINDINGS: The heart size normal. The lungs are clear. No free air or differential fluid levels are seen. The sonali wel gas pattern is unremarkable. No suspicious calcifications are noted. There are degenerative changes in the spine.
[2019-12-26 12:31] LABS: #Lymphocytes 1.6 thou/uL (1.20-3.40); #Monocytes 0.2 thou/uL (0.11-0.59); #Neutrophils 1.8 thou/uL (1.40-6.50); %Basophils 0.4 % (0.0-1.0); %Eosinophils 0.3 % (0.0-10.0); %Lymphocytes 43.5 % (21.0-51.0); %Monocytes 6.3 % (0.0-10.0); %Neutrophils 49.5 % (42.0-75.0); Hemoglobin 11.1 g/dL (12.0-16.0); MDiff Complete? YES; Macrocytosis SLIGHT = 6-15 cells (100X) (0-5/hpf); Mean Corpuscular HGB CONC 32.4 g/dL (32.0-36.0); Mean Platelet Volume 8.9 fL (7.4-10.4); Platelet Count 62 thou/uL (130-400); Platelet Morphology Comment Appears Decreased; Polychromasia SLIGHT = 2-3 cells (100X) (0-2/hpf); Red Blood Cell (RBC) Count 2.99 mill/uL (4.20-5.40); White Blood Cell (WBC) Count 3.6 thou/uL (4.8-10.8)
[2019-12-26 12:33] LABS: Bilirubin Negative (Negative); Blood, Urine Negative (Negative); Clarity Clear (Clear); Glucose, Urine (Dipstick) Normal (Negative); Ketone, Urine Negative (Negative); Leukocyte Negative Leu/uL (Negative); Nitrite Negative (Negative); Protein, Urine (Dipstick) Negative (Neg-Trace); Specific Gravity, Urine 1.029 (1.002-1.036); Urobilinogen Normal mg/dL (Less than 2); pH, Urine 5.5 (5.0-9.0)
[2019-12-27 20:07] LABS: Chlamydia by PCR Not Detected (NotDetected); GC by PCR Not Detected (NotDetected)
== END 2019-12-26 13:50 | disposition home or self-care (01) ==
LOC: ERS 10:18
DX: M06.9 Rheumatoid arthritis, unspecified (principal); B37.3 Candidiasis of vulva and vagina; R10.30 Lower abdominal pain, unspecified; R10.812 Left upper quadrant abdominal tenderness; D64.9 Anemia, unspecified; I10 Essential (primary) hypertension; J45.909 Unspecified asthma, uncomplicated; F41.9 Anxiety disorder, unspecified; Z79.899 Other long term (current) drug therapy
CPT/HCPCS: 74022; 80053; 81003; 83690; 84703; 85025; 87480; 87491; 87510; 87591; 87660; 96374; 96375; J1885; J2405; J2930

== ENCOUNTER 2020-10-01 16:06 | Emergency (ER) | payer OTHER ==
[2020-10-01 16:50] LABS: Bilirubin Negative (Negative); Blood, Urine Negative (Negative); Clarity Clear (Clear); Glucose, Urine (Dipstick) Normal (Negative); Ketone, Urine Negative (Negative); Leukocyte Negative Leu/uL (Negative); Nitrite Negative (Negative); Protein, Urine (Dipstick) Negative (Neg-Trace); Specific Gravity, Urine 1.027 (1.002-1.036); Urobilinogen Normal mg/dL (Less than 2); pH, Urine 5.5 (5.0-9.0)
[2020-10-01 16:51] LABS: Pregnancy Test - Urine (BHCG) Negative (Negative); Pregu Control Background? CLEAR/WHITE (CLR/WHITE); Pregu Control Bar Appear? YES (CONTROL BAR); Specific Gravity 1.027 (1.002-1.036)
[2020-10-01 16:55] LABS: Hemoglobin 12.3 g/dL (12.0-16.0); Mean Corpuscular HGB CONC 33.1 g/dL (32.0-36.0); Mean Corpuscular Hemoglobin 38.6 pg (27.0-31.0); Mean Platelet Volume 10.1 fL (7.4-10.4); Platelet Count 65 thou/uL (130-400); RBC Distribution Width 16.9 % (11.5-14.5); Red Blood Cell (RBC) Count 3.18 mill/uL (4.20-5.40)
[2020-10-01] MEDS ORDERED: Ketorolac Tromethamine 30 MG/ML VIAL ONE (16:56)
[2020-10-01 17:06] LABS: Anion Gap 14 mmol/L (10-20); BUN (Urea Nitrogen) 20 mg/dL (7.0-18.7); Calc. Creatinine Clearance 0 mL/min (70-130); Calcium 9.4 mg/dL (7.8-10.44); Carbon Dioxide 22 mmol/L (22-29); Chloride 109 mmol/L (98-107); Glucose 97 mg/dL (70-105); Potassium 4.2 mmol/L (3.5-5.1); Sodium 141 mmol/L (136-145)
[2020-10-01 17:10] LABS: Anisocytosis SLIGHT = 6-15 cells (100X) (0-5/hpf); Band 5 % (5-11); Lymphocytes 59 % (21-51); MDiff Complete? YES; Macrocytosis SLIGHT = 6-15 cells (100X) (0-5/hpf); Monocytes 2 % (0-10); Neutrophil 34 % (42-75); Nucleated RBC 2 % (0); Platelet Morphology Comment Appears Decreased; Polychromasia SLIGHT = 2-3 cells (100X) (0-2/hpf); White Blood Cell (WBC) Count 4.7 thou/uL (4.8-10.8)
[2020-10-02 20:33] LABS: Chlamydia by PCR Not Detected (NotDetected); GC by PCR Not Detected (NotDetected)
== END 2020-10-01 17:57 | disposition home or self-care (01) ==
LOC: ERS 16:06
DX: N76.0 Acute vaginitis (principal); Z79.52 Long term (current) use of systemic steroids; D64.9 Anemia, unspecified; I10 Essential (primary) hypertension; M06.9 Rheumatoid arthritis, unspecified; J45.909 Unspecified asthma, uncomplicated; F17.210 Nicotine dependence, cigarettes, uncomplicated
CPT/HCPCS: 80048; 81003; 81025; 85025; 87086; 87480; 87491; 87510; 87591; 87660; 96374; J1885

== ENCOUNTER 2021-12-30 08:18 | Outpatient (CLI) | payer OTHER | END 2021-12-30 08:19 | disposition home or self-care (01) | LOC: BICULT 08:18 | PROVIDERS: ATTEND Family Medicine | DX: R10.13 Epigastric pain (principal); K76.0 Fatty (change of) liver, not elsewhere classified | CPT/HCPCS: 76700 ==

== ENCOUNTER 2023-04-14 07:32 | Outpatient (CLI) | payer OTHER ==
[~2023-04-14 07:32] MED LIST changes: -ISOVUE-370 76%-LOCM 1 ML ONE; +Regadenoson 0.4 MG/5 ML SYRINGE ONE
== END 2023-04-14 07:33 ==
LOC: NM 07:32
PROVIDERS: ATTEND Internal Medicine Cardiovascular Disease
DX: Z01.810 Encounter for preprocedural cardiovascular examination (principal); R94.31 Abnormal electrocardiogram [ECG] [EKG]; I10 Essential (primary) hypertension
CPT/HCPCS: 78452; 93017; A9502; J2785